=== PATIENT | female | born 1945 | race Caucasian/White ===

== ENCOUNTER 2016-08-01 19:18 | Inpatient (IN) | payer OTHER ==
[~2016-08-01] VITALS: Ht 160 cm; Wt 56.1 kg
[~2016-08-01 19:18] MED LIST: BIOTCAP2 PO; CLTP PO; EVS60 PO; LOSA1TAB PO; RANI150T3 PO
[2016-08-01] MEDS ORDERED: ONDANSETRON INJ 2 MG/ML 2 ML VIAL IV STA (19:30)
[2016-08-01] MEDS ORDERED: SODIUM CHLORIDE 0.9% 1000ML 1,000 ML IV STA ×2 (19:30→22:05)
[2016-08-01 19:47] LABS: HEMATOCRIT 45.7 % (37-47); MEAN CELL VOLUME 87.4 fL (80-100); MEAN CORPUSCULAR HEMOGLOBIN 27.3 pg (25-34); MEAN CORPUSCULAR HGB CONC 31.3 g/dl (32-36); MEAN PLATELET VOLUME 8.9 fL (7.4-10.4); PLATELET COUNT 333 K/uL (130-400); RED BLOOD COUNT 5.23 M/uL (4.2-5.4); WHITE BLOOD COUNT 21.31 K/uL (4.8-10.8)
[2016-08-01 19:55] LABS: PARTIAL THROMBOPLASTIN RATIO 0.9; PROTHROMBIN TIME (PATIENT) 10.8 SECONDS (9.0-12.0)
--- NOTE | 2016-08-01 19:57 | DIAGNOSTIC IMAGING REPORT ---
CHEST ONE VIEW PORTABLE CLINICAL HISTORY: ABDOMINAL PAIN/GI pain. Nausea. COMPARISON STUDY: 07/08/2014 FINDINGS: The bones soft tissues and hemidiaphragms are normal. The cardiomediastinal silhouette is normal. The lungs are clear. The pulmonary vasculature is normal. IMPRESSION: Negative chest. Electronically signed by: Jono Hendricks M.D. 08/01/2016 7:56 PM Dictated Date/Time: 08/01/2016 7:56 PM
[2016-08-01 20:03] LABS: CALCIUM 9.5 mg/dl (8.5-10.1); CREATININE 0.89 mg/dl (0.60-1.20); POTASSIUM 3.4 mmol/L (3.5-5.1)
[2016-08-01] MEDS ORDERED: CALCCAP17 PO (20:07)
[2016-08-01] MEDS ORDERED: LSN20 PO (20:07)
[2016-08-01] MEDS ORDERED: OPTIRAY 320 IV PRN (20:15)
[2016-08-01 20:17] LABS: MANUAL MICROSCOPIC REQUIRED? NO; REVIEW REQ? YES; URINE APPEARANCE CLOUDY (CLEAR); URINE BILIRUBIN NEG (NEG); URINE COLOR DK YELLOW; URINE EPITHELIAL CELL AUTO >30 /lpf (0-5); URINE NITRITE NEG (NEG); URINE SPECIFIC GRAVITY 1.021 (1.000-1.030); UROBILINOGEN NEG (NEG); ZZUR CULT IF INDIC CLEAN CATCH NO
[2016-08-01 20:19] LABS: BASO % 0.1 %; BASO ABS # 0.02 K/uL (0-0.2); COMPLETE YES; IG% 0.3 %; LYMPH % 4.6 %; LYMPH ABS # 0.99 K/uL (1.2-3.4); MONO % 8.3 %; NEUT % 86.7 %
[2016-08-01] MEDS ORDERED: HYDROmorphone INJ 2 MG/ML SYR/VIAL IV STA (20:30)
--- NOTE | 2016-08-01 20:38 | DIAGNOSTIC IMAGING REPORT ---
ABDOMEN AND PELVIS CT WITH IV CONTRAST CT DOSE: 260.63 mGy.cm HISTORY: Pain abd pain, bloody diarrhea ? Isch colitis TECHNIQUE: Multiaxial CT images of the abdomen and pelvis were performed following the use of intravenous contrast. COMPARISON STUDY: 05/06/2010. FINDINGS: minimal dependent bibasilar atelectatic change. Calcified splenic granuloma unaltered. Mild fatty infiltration of liver and prior cholecystectomy. Prior partial gastrectomy. An anastomotic line is patent. Periumbilical and/or incisional hernia containing multiple loops of bowel. This is a nonobstructive finding. Bowel pattern overall is nonobstructive. Mild wall thickening of the sigmoid and descending colonic region. Appearance suggests a nonspecific colitis. Pelvic sidewall/ aortic nodularity unaltered. No evidence for free air or pneumatosis. Postoperative changes to the root of the mesentery. Uterus is anteflexed. IMPRESSION: 1. Operative findings consistent with prior partial gastrectomy 2. Interval development of a periumbilical/ventral hernia containing several loops of bowel. This is a nonobstructive finding. 3. Mild wall thickening and pericolonic infiltrative change of the sigmoid and mid to distal descending colon consistent with a nonspecific colitis. 3. No evidence for abscess collection or obstruction. . Electronically signed by: Jono Hendricks M.D. 08/01/2016 8:36 PM Dictated Date/Time: 08/01/2016 8:31 PM
[2016-08-01] MEDS ORDERED: MoRPHine SULFATE 4 MG/ML 1 ML CARP\\VIAL IV STA (21:49)
[2016-08-01] MEDS ORDERED: CIPROFLOXACIN 400MG / 200ML D5W IV STA (21:56)
--- NOTE | 2016-08-01 22:04 | EMERGENCY ROOM VISIT NOTE ---
History Report prepared by Annie: Roland Barry Under the Supervision of: Dr. Wilder Allen D.O. First contact with patient: 19:24 Chief Complaint: NAUSEA Stated Complaint: NAUSEA,VOMITING,PASSING BLOOD FROM RECTUM Nursing Triage Summary: pt reports that this afternoon started with NVD " I think its this gastroenteritis" , " but what is really worrying me is the rectal bleeding that I noticed after having diarrhea" History of Present Illness The patient is a 71 year old female who presents to the Emergency Room with complaints of intermittent diffuse abdominal pain that began this afternoon. She rates her pain a 7/10 in severity. At this time, she began to have nausea with episodes of emesis and diarrhea. During these episodes the patient was having chills and diaphoresis. She has had 3 episodes of each, with her more recent diarrhea having significant amounts of blood in it. She denies any fevers at this time. She states her symptoms do not feel like food poisoning. She is not on any blood thinners. She has a history of ischemic colitis in the past. This occurred 5 years ago. She was recently told that she has an overactive lymph node in her abdomen. Source of History: patient Onset: this afternoon Position: abdomen Symptom Intensity: 7/10 Quality: ache Timing: intermittent Associated Symptoms: + chills, + diaphoresis, + diarrhea, + hematochezia, + nausea, + vomiting, No fevers Review of Systems See HPI for pertinent positives & negatives. A total of 10 systems reviewed and were otherwise negative. Past Medical & Surgical Medical Problems: (1) Hypertension (2) Ischemic colitis (3) right upper lobectomy Surgical Problems: (1) History of cholecystectomy Family History Cancer Diabetes mellitus Gallbladder disease Heart disease Hypertension Kidney disease Lung disease Seizures Social History Smoking Status: Former Smoker Alcohol Use: occasionally Marital Status: Housing Status: lives with significant other Occupation Status: other Current/Historical Medications Scheduled Biotin (Biotin 5000), 5 MG DAILY Calcium Carbonate-Vitamin D (Calcium/Vitamin D), 1 CAP PO QAM Lisinopril (Lisinopril), 20 MG PO DAILY Allergies Coded Allergies: JEB Inhibitors (Verified Adverse Reaction, Unknown, cough, 08/01/16) Physical Exam Vital Signs Date Time Temp Pulse Resp B/P Pulse Ox O2 Delivery O2 Flow Rate FiO2 08/01/16 20:55 92 18 153/102 99 Room Air 08/01/16 19:20 36.5 94 18 158/97 94 Room Air Physical Exam CONSTITUTIONAL/VITAL SIGNS: Reviewed / noted above. GENERAL: Non-toxic in appearance. INTEGUMENTARY: Warm, dry, and [place]. HEAD: Normocephalic. EYES: without scleral icterus or trauma. ENT/OROPHARYNX: clear and moist. LYMPHADENOPATHY/NECK: Is supple without lymphadenopathy or meningismus. RESPIRATORY: Lungs clear and equal. CARDIOVASCULAR: Regular rate and rhythm. GI/ABDOMEN: Soft and mild tenderness diffusely. No organomegaly or pulsatile mass. No rebound or guarding. Normal bowel sounds. RECTAL: Minimal gross blood. No stool. Otherwise, normal. EXTREMITIES: Warm and well perfused. BACK: No CVA tenderness. NEUROLOGICAL: Intact without focal deficits. PSYCHIATRIC: normal affect. MUSCULOSKELETAL: Normally developed with good muscle tone. Medical Decision & Procedures ER Provider Diagnostic Interpretation: Radiology results as stated below per my review and radiologist interpretation: CHEST ONE VIEW PORTABLE CLINICAL HISTORY: ABDOMINAL PAIN/GI pain. Nausea. COMPARISON STUDY: 07/08/2014 FINDINGS: The bones soft tissues and hemidiaphragms are normal. The cardiomediastinal silhouette is normal. The lungs are clear. The pulmonary vasculature is normal. IMPRESSION: Negative chest. Electronically signed by: Jono Hendricks M.D. 08/01/2016 7:56 PM Dictated Date/Time: 08/01/2016 7:56 PM ABDOMEN AND PELVIS CT WITH IV CONTRAST CT DOSE: 260.63 mGy.cm HISTORY: Pain abd pain, bloody diarrhea ? Isch colitis TECHNIQUE: Multiaxial CT images of the abdomen and pelvis were performed following the use of intravenous contrast. COMPARISON STUDY: 05/06/2010. FINDINGS: minimal dependent bibasilar atelectatic change. Calcified splenic granuloma unaltered. Mild fatty infiltration of liver and prior cholecystectomy. Prior partial gastrectomy. An anastomotic line is patent. Periumbilical and/or incisional hernia containing multiple loops of bowel. This is a nonobstructive finding. Bowel pattern overall is nonobstructive. Mild wall thickening of the sigmoid and descending colonic region. Appearance suggests a nonspecific colitis. Pelvic sidewall/ aortic nodularity unaltered. No evidence for free air or pneumatosis. Postoperative changes to the root of the mesentery. Uterus is anteflexed. IMPRESSION: 1. Operative findings consistent with prior partial gastrectomy 2. Interval development of a periumbilical/ventral hernia containing several loops of bowel. This is a nonobstructive finding. 3. Mild wall thickening and pericolonic infiltrative change of the sigmoid and mid to distal descending colon consistent with a nonspecific colitis. 3. No evidence for abscess collection or obstruction. . Electronically signed by: Jono Hendricks M.D. 08/01/2016 8:36 PM Dictated Date/Time: 08/01/2016 8:31 PM Laboratory Results 08/01/16 19:36 Red Blood Count 5.23, Mean Corpuscular Volume 87.4, Mean Corpuscular Hemoglobin 27.3, Mean Corpuscular Hemoglobin Concent 31.3, Mean Platelet Volume 8.9, Neutrophils (%) (Auto) 86.7, Lymphocytes (%) (Auto) 4.6, Monocytes (%) (Auto) 8.3, Eosinophils (%) (Auto) 0.0, Basophils (%) (Auto) 0.1, Neutrophils # (Auto) 18.46, Lymphocytes # (Auto) 0.99, Monocytes # (Auto) 1.77, Eosinophils # (Auto) 0.00, Basophils # (Auto) 0.02 08/01/16 19:36 Test 08/01/16 19:36 08/01/16 19:48 08/01/16 19:50 White Blood Count 21.31 K/uL (4.8-10.8) Red Blood Count 5.23 M/uL (4.2-5.4) Hemoglobin 14.3 g/dL (12.0-16.0) Hematocrit 45.7 % (37-47) Mean Corpuscular Volume 87.4 fL (80-100) Mean Corpuscular Hemoglobin 27.3 pg (25-34) Mean Corpuscular Hemoglobin Concent 31.3 g/dl (32-36) Platelet Count 333 K/uL (130-400) Mean Platelet Volume 8.9 fL (7.4-10.4) Neutrophils (%) (Auto) 86.7 % Lymphocytes (%) (Auto) 4.6 % Monocytes (%) (Auto) 8.3 % Eosinophils (%) (Auto) 0.0 % Basophils (%) (Auto) 0.1 % Neutrophils # (Auto) 18.46 K/uL (1.4-6.5) Lymphocytes # (Auto) 0.99 K/uL (1.2-3.4) Monocytes # (Auto) 1.77 K/uL (0.11-0.59) Eosinophils # (Auto) 0.00 K/uL (0-0.5) Basophils # (Auto) 0.02 K/uL (0-0.2) RDW Standard Deviation 41.4 fL (36.4-46.3) RDW Coefficient of Variation 12.9 % (11.5-14.5) Immature Granulocyte % (Auto) 0.3 % Immature Granulocyte # (Auto) 0.07 K/uL (0.00-0.02) Prothrombin Time 10.8 SECONDS (9.0-12.0) Prothromb Time International Ratio 1.0 (0.9-1.1) Activated Partial Thromboplast Time 22.8 SECONDS (21.0-31.0) Partial Thromboplastin Ratio 0.9 Anion Gap 11.0 mmol/L (3-11) Est Creatinine Clear Calc Drug Dose 47.2 ml/min Estimated GFR () 75.0 Estimated GFR (Non- 64.7 BUN/Creatinine Ratio 20.0 (10-20) Calcium Level 9.5 mg/dl (8.5-10.1) Total Bilirubin 0.7 mg/dl (0.2-1) Direct Bilirubin 0.1 mg/dl (0-0.2) Aspartate Amino Transf (AST/SGOT) 21 U/L (15-37) Alanine Aminotransferase (ALT/SGPT) 26 U/L (12-78) Alkaline Phosphatase 115 U/L (45-117) Total Protein 7.9 gm/dl (6.4-8.2) Albumin 4.2 gm/dl (3.4-5.0) Lipase 106 U/L (73-393) Bedside Lactic Acid Venous 3.42 mmol/L (0.90-1.70) Urine Color DK YELLOW Urine Appearance CLOUDY (CLEAR) Urine pH 5.0 (4.5-7.5) Urine Specific [place] 1.021 (1.000-1.030) Urine Protein NEG (NEG) Urine Glucose (UA) NEG (NEG) Urine Ketones NEG (NEG) Urine Occult Blood NEG (NEG) Urine Nitrite NEG (NEG) Urine Bilirubin NEG (NEG) Urine Urobilinogen NEG (NEG) Urine Leukocyte Esterase TRACE (NEG) Urine WBC (Auto) 1-5 /hpf (0-5) Urine RBC (Auto) 5-10 /hpf (0-4) Urine Hyaline Casts (Auto) 5-10 /lpf (0-5) Urine Epithelial Cells (Auto) >30 /lpf (0-5) Urine Bacteria (Auto) NEG (NEG) Urine Renal Epithelial Cells 0-5 /lpf (0-5) Date/Time Source Procedure Growth Status 08/01/16 19:57 Stool C.difficile Toxin B Gene (PCR) - Final No C. difficile toxin B gene detected Complete Laboratory results as stated above per my review. Medications Administered Medications (Trade) Dose Ordered Sig/Adan Route Start Time Stop Time Status Last Admin Dose Admin Sodium Chloride (Nss 1000ml) 1,000 ml @ 500 mls/hr Q2H STAT IV 08/01/16 19:30 08/01/16 21:29 DC 08/01/16 19:30 500 MLS/HR Ondansetron HCl (Zofran Inj) 4 mg NOW STAT IV 08/01/16 19:30 08/01/16 19:31 DC 08/01/16 19:30 4 MG Morphine Sulfate (MoRPHine SULFATE INJ) 4 mg NOW STAT IV 08/01/16 21:49 08/01/16 21:50 DC 08/01/16 21:59 4 MG ED Course 1923: Previous medical records were reviewed. The patient was evaluated in room A10. A complete history and physical examination was performed. 1930: Ordered Zofran Inj 4 mg IV, Sodium Chloride 1000 ml @ 500 mls/hr IV 2029: Ordered Dilaudid Inj 2 mg IV 2050: On reevaluation, the patient is resting. I discussed the results and findings with her. She verbalized agreement of the treatment plan. I spoke with Dr. Ekaterina Guerin [facility], who took the call for Dr. Schaffer of the [facility] Hospitalist Service. The patient will be evaluated for further management and care. Medical Decision Differential diagnosis: Etiologies such as gastroenteritis, food borne illness, infections, appendicitis , diverticulitis, inflammatory bowel disease, obstruction, GI bleed, biliary pathology, as well as others were entertained. This is a 71-year-old female who presents to the ED with a chief complaint of nausea, vomiting and diarrhea that started around 3 PM today. The patient had about 3 episodes of vomiting and 4-5 episodes of diarrhea. She states that the last couple of episodes of nonbloody. She's been passing small amount of blood with her diarrhea. The last couple of times it is just been a small amount of blood without stool. The patient reports abdominal pain that is waxing and waning. Her vital signs are stable. Her physical exam did not reveal any significant abdominal tenderness. She was mildly tender diffusely. Lactate level was 3.4. White blood cell count was 21.3. Complete metabolic panels normal. Lipase is negative. Dip was negative. Urine did not show infection. A CT scan reveals some nonspecific colitis-type changes in the sigmoid and distal colon. The patient was treated with IV morphine and IV fluids. She had a very small amount of blood in her stool here today. Rectal exam revealed a minimal amount of gross blood without stool. I spoke with the hospitalist service, who will see the patient for further inpatient evaluation. Symptoms could be consistent with an early or mild ischemic colitis or an infectious colitis. Consults Time Called: 2047 Consulting Physician: Dr. Ekaterina ROBLEDO, taking the call for Dr. Karime ROBLEDO Returned Call: 2050 He will be evaluating the patient for further management. Impression Primary Impression: Colitis Additional Impression: GI bleed Scribe Attestation The scribe's documentation has been prepared under my direction and personally reviewed by me in its entirety. I confirm that the note above accurately reflects all work, treatment, procedures, and medical decision making performed by me. Departure Information Dispostion Being Evaluated By Hospitalist Referrals Ramses Goyal D.O. (PCP) Patient Instructions My [facility] Problem Qualifiers
[2016-08-01] MEDS ORDERED: ONDANSETRON INJ 2 MG/ML 2 ML VIAL ONE (22:22)
--- NOTE | 2016-08-01 22:41 | History and Physical ---
History & Physical Date & Time of Service: August 01, 2016 at 22:07 Chief Complaint: Nausea,Vomiting,Passing Blood From Rectum Primary Care Physician: Ramses Goyal D.O. History of Present Illness Mrs Tavares is a 71 year old female with past medical history of suspected ischemic colitis, presents to the ER with 1 day history of left lower quadrant abdominal pain (severity 7/10), red blood in stool, fevers, chills, nausea and vomiting. She currently feels much improved after IV fluids and pain and nausea medication. She notes having a colonoscopy in 2011 which was reportedly normal and no known previous history of diverticular disease. No family history of IBD or colon cancer. Her previous episode of ischemic colitis was following her lobectomy but she is unsure whether she had a CT scan to confirm this and was not placed on an aspirin at that time. She has been intolerant to aspirin with nose bleeds in the past. No previous GI bleeds or black stool. She has a history of lung cancer (adenocarcinoma) for which she follows up with Dr Santiago Smallwood at [facility] in [facility] s/p lobectomy. She reports her last CT chest was in March and this was stable. They are following . She also had an abdominal lymph node removed which was highlighted on PET imaging but reports this was reactive but non cancerous. Past Medical/Surgical History Medical Problems: (1) Hypertension Status: Chronic (2) Ischemic colitis Status: Resolved (3) right upper lobectomy Status: Resolved Surgical Problems: (1) History of cholecystectomy Status: Resolved Family History Cancer Diabetes mellitus Gallbladder disease Heart disease Hypertension Kidney disease Lung disease Seizures Social History Smoking Status: Former Smoker Marital Status: Housing status: lives with family ( current has active cancer on chemotherapy) Occupational Status: other Immunizations History of Influenza Vaccine: Yes History of Tetanus Vaccine?: Unknown History of Pneumococcal: No History of Hepatitis B Vaccine: Unknown Multi-Drug Resistant Organisms History of MDRO: No Allergies Coded Allergies: Atenolol (Verified Adverse Reaction, Mild, Chronic cough, 08/01/16) Bisphosphonates (Verified Adverse Reaction, Mild, GI side effects, 08/01/16) Home Medications Scheduled Biotin (Biotin 5000), 5 MG DAILY Calcium Carbonate-Vitamin D (Calcium/Vitamin D), 1 CAP PO QAM Lisinopril (Lisinopril), 20 MG PO DAILY Review of Systems Constitutional: + chills, + fever Eyes: No worsening of vision ENT: No dental problems, No hearing loss, No nasal symptoms, No problem reported, No sore throat, No tinnitus, No trouble swallowing, No unusual epistaxis Respiratory: No cough, No dyspnea at rest, No dyspnea on exertion, No hemoptysis, No problem reported, No shortness of breath, No sputum, No wheezing Cardiovascular: No PND, No chest pain, No claudication, No edema, No orthopnea , No palpitations, No problem reported Abdomen: + GI bleeding, + diarrhea, + nausea, + pain, + vomiting, No constipation Musculoskeletal: No calf pain, No joint pain, No muscle pain, No problem reported, No swelling Genitourinary - Female: No dysuria, No hematuria, No problem reported, No urinary frequency, No urinary incontinence, No urinary retention, No urinary urgency Neurologic: No memory loss, No paralysis, No problem reported, No weakness Psychiatric: No problem reported Endocrine: No excessive thirst, No excessive urination, No fatigue, No problem reported Hematologic / Lymphatic: + abnormal bleeding/bruising, No swollen lymph nodes Integumentary: No itch, No rash Physical Exam Vital Signs Date Time Temp Pulse Resp B/P Pulse Ox O2 Delivery O2 Flow Rate FiO2 08/01/16 20:55 92 18 153/102 99 Room Air 08/01/16 19:20 36.5 94 18 158/97 94 Room Air General Appearance: WD/WN, no apparent distress Head: normocephalic, atraumatic Eyes: normal inspection (pupils equal, non icteric), EOMI ENT: normal ENT inspection, hearing grossly normal Neck: supple, no JVD Respiratory/Chest: chest non-tender, lungs clear, normal breath sounds, no respiratory distress, no accessory muscle use Cardiovascular: regular rate, rhythm, no edema, no murmur, normal peripheral pulses Abdomen/GI: soft, + tenderness (LLQ, no rebound or guarding) Back: no CVA tenderness Extremities/Musculoskelatal: normal inspection, no calf tenderness, normal capillary refill, no pedal edema, normal range of motion Neurologic/Psych: personal lines appraiser II-XII nml as tested (grossly), no motor/sensory deficits (grossly), alert, normal mood/affect, oriented x 3 Skin: normal color, warm/dry, no rash Diagnostics Laboratory Results Results Past 24 Hours Test 08/01/16 19:36 08/01/16 19:48 08/01/16 19:50 Range/Units White Blood Count 21.31 4.8-10.8 K/uL Red Blood Count 5.23 4.2-5.4 M/uL Hemoglobin 14.3 12.0-16.0 g/dL Hematocrit 45.7 37-47 % Mean Corpuscular Volume 87.4 80-100 fL Mean Corpuscular Hemoglobin 27.3 25-34 pg Mean Corpuscular Hemoglobin Concent 31.3 32-36 g/dl Platelet Count 333 130-400 K/uL Mean Platelet Volume 8.9 7.4-10.4 fL Neutrophils (%) (Auto) 86.7 % Lymphocytes (%) (Auto) 4.6 % Monocytes (%) (Auto) 8.3 % Eosinophils (%) (Auto) 0.0 % Basophils (%) (Auto) 0.1 % Neutrophils # (Auto) 18.46 1.4-6.5 K/uL Lymphocytes # (Auto) 0.99 1.2-3.4 K/uL Monocytes # (Auto) 1.77 0.11-0.59 K/uL Eosinophils # (Auto) 0.00 0-0.5 K/uL Basophils # (Auto) 0.02 0-0.2 K/uL RDW Standard Deviation 41.4 36.4-46.3 fL RDW Coefficient of Variation 12.9 11.5-14.5 % Immature Granulocyte % (Auto) 0.3 % Immature Granulocyte # (Auto) 0.07 0.00-0.02 K/uL Prothrombin Time 10.8 9.0-12.0 SECONDS Prothromb Time International Ratio 1.0 0.9-1.1 Activated Partial Thromboplast Time 22.8 21.0-31.0 SECONDS Partial Thromboplastin Ratio 0.9 Sodium Level 138 136-145 mmol/L Potassium Level 3.4 3.5-5.1 mmol/L Chloride Level 102 98-107 mmol/L Carbon Dioxide Level 25 21-32 mmol/L Anion Gap 11.0 3-11 mmol/L Blood Urea Nitrogen 18 7-18 mg/dl Creatinine 0.89 0.60-1.20 mg/dl Est Creatinine Clear Calc Drug Dose 47.2 ml/min Estimated GFR () 75.0 Estimated GFR (Non- 64.7 BUN/Creatinine Ratio 20.0 10-20 Random Glucose 167 70-99 mg/dl Calcium Level 9.5 8.5-10.1 mg/dl Total Bilirubin 0.7 0.2-1 mg/dl Direct Bilirubin 0.1 0-0.2 mg/dl Aspartate Amino Transf (AST/SGOT) 21 15-37 U/L Alanine Aminotransferase (ALT/SGPT) 26 12-78 U/L Alkaline Phosphatase 115 45-117 U/L Total Protein 7.9 6.4-8.2 gm/dl Albumin 4.2 3.4-5.0 gm/dl Lipase 106 73-393 U/L Bedside Lactic Acid Venous 3.42 0.90-1.70 mmol/L Urine Color DK YELLOW Urine Appearance CLOUDY CLEAR Urine pH 5.0 4.5-7.5 Urine Specific [place] 1.021 1.000-1.030 Urine Protein NEG NEG Urine Glucose (UA) NEG NEG Urine Ketones NEG NEG Urine Occult Blood NEG NEG Urine Nitrite NEG NEG Urine Bilirubin NEG NEG Urine Urobilinogen NEG NEG Urine Leukocyte Esterase TRACE NEG Urine WBC (Auto) 1-5 0-5 /hpf Urine RBC (Auto) 5-10 0-4 /hpf Urine Hyaline Casts (Auto) 5-10 0-5 /lpf Urine Epithelial Cells (Auto) >30 0-5 /lpf Urine Bacteria (Auto) NEG NEG Urine Renal Epithelial Cells 0-5 0-5 /lpf Microbiology Results 08/01/16 Blood Culture, Christopher Batch Pending 08/01/16 Blood Culture, Christopher Batch Pending 08/01/16 C.difficile Toxin B Gene (PCR) - Final, Complete No C. difficile toxin B gene detected Diagnostic Radiology ABDOMEN AND PELVIS CT WITH IV CONTRAST CT DOSE: 260.63 mGy.cm HISTORY: Pain abd pain, bloody diarrhea ? Isch colitis TECHNIQUE: Multiaxial CT images of the abdomen and pelvis were performed following the use of intravenous contrast. COMPARISON STUDY: 05/06/2010. FINDINGS: minimal dependent bibasilar atelectatic change. Calcified splenic granuloma unaltered. Mild fatty infiltration of liver and prior cholecystectomy. Prior partial gastrectomy. An anastomotic line is patent. Periumbilical and/or incisional hernia containing multiple loops of bowel. This is a nonobstructive finding. Bowel pattern overall is nonobstructive. Mild wall thickening of the sigmoid and descending colonic region. Appearance suggests a nonspecific colitis. Pelvic sidewall/ aortic nodularity unaltered. No evidence for free air or pneumatosis. Postoperative changes to the root of the mesentery. Uterus is anteflexed. IMPRESSION: 1. Operative findings consistent with prior partial gastrectomy 2. Interval development of a periumbilical/ventral hernia containing several loops of bowel. This is a nonobstructive finding. 3. Mild wall thickening and pericolonic infiltrative change of the sigmoid and mid to distal descending colon consistent with a nonspecific colitis. 3. No evidence for abscess collection or obstruction. . Electronically signed by: Jono Hendricks M.D. 08/01/2016 8:36 PM Dictated Date/Time: 08/01/2016 8:31 PM CXR normal Impression Assessment and Plan 71 year old female with possible past history of ischemic colitis but no imaging to confirm this present with non specific colitis on CT of sigmoid with elevated WBC consistent with diverticulitis. Lactic acid is raised. She will be admitted as this may still be ischemic in nature and we will get an US of her mesenteric arteries. Ischemic colitis vs. diverticulitis - most likely diverticulitis however with past history of ischemia this cannot be ruled out. CT with IV contrast does not show any ischemic regions - US mesenteric arteries - Blood cultures - cipro + metronidazole - NPO except meds and ice chips - Zofran + Phenergan for nausea, morphine + acetaminophen for pain - If continues to vomit will need NG tube - lactic acid now and in the morning - IVF Hypertension - Continue lisinopril, monitor Cr Code - Full VTE Prophylaxis - SCDs, will hold off chemical given current GI bleeding, could be considered in the morning depending on repeat CBC Disposition - admit to med/surg Level of Care Med/Surg Resuscitation Status FULL RESUSCITATION VTE Prophylaxis VTE Risk Assessment Done? Y/N: Yes Risk Level: Moderate Given or contraindicated: Contraindicated (ongoing GI bleed) Resident Tracking Resident Involvement: Resident Care Provided Care Provided: Adult [facility] Medicine Assessment and Plan Attending Addendum: I have physically seen and examined this patient, have directed their medical care, have supervised the medical residents activities, and agree with the H&P as noted above, with the following changes: NONE
[2016-08-01] MEDS ORDERED: MoRPHine SULFATE 2 MG/ML CARP IV PRN (22:45)
[2016-08-01] MEDS ORDERED: PROMETHAZINE HCL INJ 12.5 MG in SODIUM CHLORIDE 0.9% 50ML 50 ML IV PRN (22:45)
[2016-08-01] MEDS: ONDANSETRON INJ 2 MG/ML 2 ML VIAL IV PRN (23:49)
[2016-08-01 23:57] VITALS: BP 103/68; PULSE 96; TEMP 36.6; O2SAT 95
[2016-08-01] MEDS: METRONIDAZOLE / NSS 500 MG in PREMIXED NSS 100 ML IV SCH (23:59)
[2016-08-02] VITALS: BP 132/81; PULSE 86; TEMP 36.6; O2SAT 94
[2016-08-02 00:45] VITALS: BP 132/81; PULSE 86; TEMP 36.6; O2SAT 94; Ht 160 cm; Wt 56.1 kg
[2016-08-02] MEDS: POTASSIUM CHLORIDE INJ 40 MEQ in SODIUM CHLORIDE 0.9% 1000ML 1,000 ML IV SCH ×3 (03:36→21:23)
--- NOTE | 2016-08-02 06:47 | DIAGNOSTIC IMAGING REPORT ---
DUPLEX MESENTERIC CLINICAL HISTORY: Possible ischemic colitis. COMPARISON STUDY: CT of the abdomen and pelvis August 01, 2016. FINDINGS: The peak systolic velocity within the abdominal aorta was 135 cm/s. The peak systolic velocity within the superior mesenteric artery with within the mid SMA, measuring 271 cm/s. The peak systolic velocity within the celiac axis was 86 cm/s. IMPRESSION: No definite sonographic evidence of a hemodynamically significant stenosis within the major mesenteric vessels. Borderline elevated velocity within the mid SMA. Electronically signed by: Nickolas Laurent M.D. 08/02/2016 6:46 AM Dictated Date/Time: 08/02/2016 6:42 AM
[2016-08-02] MEDS: ONDANSETRON INJ 2 MG/ML 2 ML VIAL IV PRN (07:16)
[2016-08-02 07:23] VITALS: BP 108/72; PULSE 97; TEMP 36.7; O2SAT 96
[2016-08-02 07:53] LABS: BASO % 0.1 %; BASO ABS # 0.01 K/uL (0-0.2); COMPLETE YES; EOS % 0.1 %; HEMATOCRIT 35.5 % (37-47); IG% 0.3 %; LYMPH % 8.6 %; LYMPH ABS # 1.27 K/uL (1.2-3.4); MEAN CELL VOLUME 87.2 fL (80-100); MEAN CORPUSCULAR HEMOGLOBIN 28.3 pg (25-34); MEAN CORPUSCULAR HGB CONC 32.4 g/dl (32-36); MEAN PLATELET VOLUME 8.6 fL (7.4-10.4); MONO % 7.7 %; NEUT % 83.2 %; PLATELET COUNT 254 K/uL (130-400); RED BLOOD COUNT 4.07 M/uL (4.2-5.4); WHITE BLOOD COUNT 14.77 K/uL (4.8-10.8)
[2016-08-02 08:49] LABS: BUN/CREATININE RATIO 18.1 (10-20); CREATININE 0.72 mg/dl (0.60-1.20); POTASSIUM 4.1 mmol/L (3.5-5.1)
[2016-08-02] MEDS: LISINOPRIL 20 MG TAB PO SCH (08:57)
[2016-08-02] MEDS: CIPROFLOXACIN / D5W 400 MG in PREMIXED IN D5W 200 ML IV SCH ×3 (08:57→21:23)
[2016-08-02] MEDS: METRONIDAZOLE / NSS 500 MG in PREMIXED NSS 100 ML IV SCH ×3 (08:57→23:51)
[2016-08-02 09:01] LABS: CALCIUM 8.1 mg/dl (8.5-10.1)
[2016-08-02] MEDS: ACETAMINOPHEN IV 650 MG in EMPTY BAG 0 ML IV PRN ×2 (11:23→17:13)
[2016-08-02 15:26] VITALS: BP 99/65; PULSE 76; TEMP 36.4; O2SAT 96
[2016-08-02 15:31] VITALS: BP 116/72; PULSE 87; TEMP 36.8; O2SAT 96
[2016-08-02 16:10] VITALS: O2SAT 96
--- NOTE | 2016-08-02 19:30 | Hospitalist Progress Note ---
Hospitalist Progress Note Date of Service August 02, 2016. Medications Medications (Trade) Dose Ordered Sig/Adan Route Start Time Stop Time Status Last Admin Dose Admin Sodium Chloride (Nss 1000ml) 1,000 ml @ 500 mls/hr Q2H STAT IV 08/01/16 19:30 08/01/16 21:29 DC 08/01/16 19:30 500 MLS/HR Ondansetron HCl (Zofran Inj) 4 mg NOW STAT IV 08/01/16 19:30 08/01/16 19:31 DC 08/01/16 19:30 4 MG Morphine Sulfate (MoRPHine SULFATE INJ) 4 mg NOW STAT IV 08/01/16 21:49 08/01/16 21:50 DC 08/01/16 21:59 2 MG Ciprofloxacin/ Dextrose 400 mg 400 mg NOW STAT IV 08/01/16 21:56 08/01/16 22:20 DC 08/01/16 22:26 400 MG Metronidazole 500 mg/Prmx 100 ml @ 100 mls/hr Q8H IV 08/02/16 00:00 08/12/16 00:00 08/02/16 08:57 100 MLS/HR Sodium Chloride 1,000 ml @ 250 mls/hr Q4H STAT IV 08/01/16 22:05 08/02/16 02:04 DC 08/01/16 22:26 250 MLS/HR Potassium Chloride/Sodium Chloride (KCl Inj/Nss 1000ml) 1,020 ml @ 125 mls/hr Q8H10M IV 08/02/16 02:30 09/01/16 02:29 08/02/16 03:36 125 MLS/HR Ondansetron HCl (Zofran Inj) 4 mg STK-MED ONCE .ROUTE 08/01/16 22:22 08/01/16 22:23 DC 08/01/16 22:26 4 MG Ondansetron HCl 4 mg 4 mg Q4H PRN IV 08/01/16 22:30 08/31/16 22:29 08/02/16 07:16 4 MG Promethazine HCl/ Sodium Chloride (Phenergan Inj/ Nss 50ml) 50.5 ml @ 204 mls/hr Q6H PRN IV 08/01/16 22:45 08/31/16 22:44 08/02/16 01:06 204 MLS/HR Lisinopril (Zestril Tab) 20 mg DAILY PO 08/02/16 08:00 09/01/16 08:59 08/02/16 08:57 20 MG Objective Vital Signs Date Time Temp Pulse Resp B/P Pulse Ox O2 Delivery O2 Flow Rate FiO2 08/02/16 07:23 36.7 97 18 108/72 96 Room Air 08/02/16 00:45 36.6 86 20 132/81 94 Room Air 08/02/16 00:00 36.6 86 20 132/81 94 Room Air 08/01/16 22:34 87 18 128/85 96 Room Air 08/01/16 20:55 92 18 153/102 99 Room Air 08/01/16 19:20 36.5 94 18 158/97 94 Room Air Physical Exam General Appearance: WD/WN Eyes: normal inspection ENT: normal ENT inspection Neck: supple, no JVD Respiratory/Chest: chest non-tender, lungs clear Cardiovascular: regular rate, rhythm, no edema, no gallop Abdomen: normal bowel sounds, non tender, soft Extremities: normal range of motion, non-tender Neurologic/Psychiatric: offc spec II-XII nml as tested, no motor/sensory deficits, alert, normal mood/affect, oriented x 3 Laboratory Results Last 24 Hours Test 08/01/16 19:36 08/01/16 19:48 08/01/16 19:50 08/01/16 22:29 White Blood Count 21.31 K/uL Red Blood Count 5.23 M/uL Hemoglobin 14.3 g/dL Hematocrit 45.7 % Mean Corpuscular Volume 87.4 fL Mean Corpuscular Hemoglobin 27.3 pg Mean Corpuscular Hemoglobin Concent 31.3 g/dl Platelet Count 333 K/uL Mean Platelet Volume 8.9 fL Neutrophils (%) (Auto) 86.7 % Lymphocytes (%) (Auto) 4.6 % Monocytes (%) (Auto) 8.3 % Eosinophils (%) (Auto) 0.0 % Basophils (%) (Auto) 0.1 % Neutrophils # (Auto) 18.46 K/uL Lymphocytes # (Auto) 0.99 K/uL Monocytes # (Auto) 1.77 K/uL Eosinophils # (Auto) 0.00 K/uL Basophils # (Auto) 0.02 K/uL RDW Standard Deviation 41.4 fL RDW Coefficient of Variation 12.9 % Immature Granulocyte % (Auto) 0.3 % Immature Granulocyte # (Auto) 0.07 K/uL Prothrombin Time 10.8 SECONDS Prothromb Time International Ratio 1.0 Activated Partial Thromboplast Time 22.8 SECONDS Partial Thromboplastin Ratio 0.9 Sodium Level 138 mmol/L Potassium Level 3.4 mmol/L Chloride Level 102 mmol/L Carbon Dioxide Level 25 mmol/L Anion Gap 11.0 mmol/L Blood Urea Nitrogen 18 mg/dl Creatinine 0.89 mg/dl Est Creatinine Clear Calc Drug Dose 47.2 ml/min Estimated GFR () 75.0 Estimated GFR (Non- 64.7 BUN/Creatinine Ratio 20.0 Random Glucose 167 mg/dl Calcium Level 9.5 mg/dl Total Bilirubin 0.7 mg/dl Direct Bilirubin 0.1 mg/dl Aspartate Amino Transf (AST/SGOT) 21 U/L Alanine Aminotransferase (ALT/SGPT) 26 U/L Alkaline Phosphatase 115 U/L Total Protein 7.9 gm/dl Albumin 4.2 gm/dl Lipase 106 U/L Bedside Lactic Acid Venous 3.42 mmol/L Urine Color DK YELLOW Urine Appearance CLOUDY Urine pH 5.0 Urine Specific [place] 1.021 Urine Protein NEG Urine Glucose (UA) NEG Urine Ketones NEG Urine Occult Blood NEG Urine Nitrite NEG Urine Bilirubin NEG Urine Urobilinogen NEG Urine Leukocyte Esterase TRACE Urine WBC (Auto) 1-5 /hpf Urine RBC (Auto) 5-10 /hpf Urine Hyaline Casts (Auto) 5-10 /lpf Urine Epithelial Cells (Auto) >30 /lpf Urine Bacteria (Auto) NEG Urine Renal Epithelial Cells 0-5 /lpf Lactic Acid Level 3.2 mmol/L Test 08/02/16 07:42 White Blood Count 14.77 K/uL Red Blood Count 4.07 M/uL Hemoglobin 11.5 g/dL Hematocrit 35.5 % Mean Corpuscular Volume 87.2 fL Mean Corpuscular Hemoglobin 28.3 pg Mean Corpuscular Hemoglobin Concent 32.4 g/dl Platelet Count 254 K/uL Mean Platelet Volume 8.6 fL Neutrophils (%) (Auto) 83.2 % Lymphocytes (%) (Auto) 8.6 % Monocytes (%) (Auto) 7.7 % Eosinophils (%) (Auto) 0.1 % Basophils (%) (Auto) 0.1 % Neutrophils # (Auto) 12.30 K/uL Lymphocytes # (Auto) 1.27 K/uL Monocytes # (Auto) 1.13 K/uL Eosinophils # (Auto) 0.01 K/uL Basophils # (Auto) 0.01 K/uL RDW Standard Deviation 42.5 fL RDW Coefficient of Variation 13.3 % Immature Granulocyte % (Auto) 0.3 % Immature Granulocyte # (Auto) 0.05 K/uL Sodium Level 140 mmol/L Potassium Level 4.1 mmol/L Chloride Level 108 mmol/L Carbon Dioxide Level 23 mmol/L Anion Gap 9.0 mmol/L Blood Urea Nitrogen 13 mg/dl Creatinine 0.72 mg/dl Est Creatinine Clear Calc Drug Dose 58.4 ml/min Estimated GFR () 97.0 Estimated GFR (Non- 83.7 BUN/Creatinine Ratio 18.1 Random Glucose 108 mg/dl Lactic Acid Level 1.3 mmol/L Calcium Level 8.1 mg/dl Total Bilirubin 0.9 mg/dl Aspartate Amino Transf (AST/SGOT) 17 U/L Alanine Aminotransferase (ALT/SGPT) 19 U/L Alkaline Phosphatase 75 U/L Total Protein 5.7 gm/dl Albumin 2.9 gm/dl Globulin 2.8 gm/dl Albumin/Globulin Ratio 1.0 Diagnostic Results [~ rep ct add3]] DUPLEX MESENTERIC CLINICAL HISTORY: Possible ischemic colitis. COMPARISON STUDY: CT of the abdomen and pelvis August 01, 2016. FINDINGS: The peak systolic velocity within the abdominal aorta was 135 cm/s. The peak systolic velocity within the superior mesenteric artery with within the mid SMA, measuring 271 cm/s. The peak systolic velocity within the celiac axis was 86 cm/s. IMPRESSION: No definite sonographic evidence of a hemodynamically significant stenosis within the major mesenteric vessels. Borderline elevated velocity within the mid SMA. Electronically signed by: Nickolas Laurent M.D. 08/02/2016 6:46 AM Dictated Date/Time: 08/02/2016 6:42 AM Assessment and Plan 71 year old female with possible past history of ischemic colitis but no imaging to confirm this present with non specific colitis on CT of sigmoid with elevated WBC consistent with diverticulitis. Lactic acid is raised. She will be admitted as this may still be ischemic in nature and we will get an US of her mesenteric arteries. Ischemic colitis vs. diverticulitis - most likely diverticulitis however with past history of ischemia this cannot be ruled out. CT with IV contrast does not show any ischemic regions - US mesenteric arteries shows no evidence of high grade stenosis. - Blood cultures - cipro + metronidazole - NPO except meds and ice chips - Zofran + Phenergan for nausea, morphine + acetaminophen for pain - If continues to vomit will need NG tube - lactic acid improved. - GI consult - IVF Hypertension - Continue lisinopril, monitor Cr Code - Full VTE Prophylaxis - SCDs, will hold off chemical given current GI bleeding, could be considered in the morning depending on repeat CBC Disposition - admit to med/surg
[2016-08-03] VITALS: BP 93/55; PULSE 82; TEMP 36.9; O2SAT 96
[2016-08-03] MEDS: POTASSIUM CHLORIDE INJ 40 MEQ in SODIUM CHLORIDE 0.9% 1000ML 1,000 ML IV SCH ×2 (03:00→11:34)
--- NOTE | 2016-08-03 05:53 | GASTROINTESTINAL CONSULTATION ---
DATE OF CONSULTATION: 08/02/2016 ATTENDING PHYSICIAN: Dr. Schaffer. CONSULTING PHYSICIAN: Dr. Mukherjee. REASON FOR CONSULTATION: Colitis. HISTORY OF PRESENT ILLNESS: Emily Valdovinos is a 71-year-old female who presented to the Department of Emergency Medicine on August 01 with complaints of nausea, vomiting and rectal bleeding. She stated that she developed episodes of abdominal pain in the left lower quadrant, which was 7/10 in intensity as well as associated nausea, vomiting, lightheadedness, dizziness and questionable loss of consciousness. She also had diaphoresis and subsequently had multiple episodes of bright red blood per rectum. She presented to the Department of Emergency Medicine. Upon arrival, she was noted to have an H\T\H of 14.3 and 45.7 with a white blood cell count of 21.31, and platelet count of 333. Her liver panel was unremarkable. She underwent a CT scan of the abdomen and pelvis, which showed mild wall thickening and pericolonic infiltrative change in the sigmoid and mid to distal descending colon consistent with a nonspecific colitis. She subsequently was admitted, was given IV fluids, was placed on IV Cipro and Flagyl therapy and had a repeat H\T\H this morning, which showed a decrease in her H\T\H to 11.5 and 35.5. At the time that I saw the patient, she states that she was feeling much improved from her arrival to the ER. She states that her pain has improved with IV Tylenol therapy and she has had continued small bloody bowel movements. She currently rates her pain as 4/10 in intensity, nonradiating, alleviated by Tylenol, described as a chronic ache at this time. She denies any further nausea, vomiting, hematemesis or melena. She states that she has not had any jaundice, acholic stools, dark urine, pruritus, chest pain, shortness of breath, cough, dysuria, hematuria, arthralgia, myalgias, numbness or tingling in her extremities, skin rash or weight change. She has not had any further complaints. It should be noted that her last colonoscopy was performed in 2010 and at that time, she was noted to have two colon polyps as well as diverticulosis. The polyps were noted to be non-adenomatous and recommendation was for a repeat colonoscopy in 10 years' time. She has no further complaints. PAST MEDICAL HISTORY: Significant for diverticulosis, hypertension, and ischemic colitis. PAST SURGICAL HISTORY: Includes cholecystectomy and a right upper lobectomy of the lung secondary to adenocarcinoma. ALLERGIES: ATENOLOL AND BISPHOSPHONATES. MEDICATIONS AT PRESENT: Include, Cipro 400 mg IV q. 12 hours, lisinopril 20 mg p.o. daily, Flagyl 500 mg IV q. 8 hours, Tylenol 650 mg IV q. 6 hours p.r.n. pain or fever, morphine 2 mg IV q. 2 hours p.r.n. pain, Phenergan 12.5 mg IV q. 6 p.r.n. nausea or vomiting, and Zofran 4 mg IV q. 4 hours p.r.n. nausea. SOCIAL HISTORY: She is . She is a previous smoker. She does not use any alcohol or illicit drugs. FAMILY HISTORY: Negative for GI malignancy or inflammatory bowel disease. REVIEW OF SYSTEMS: Negative x12 system review other than pertinent positives listed in the HPI. PHYSICAL EXAMINATION: VITAL SIGNS: Temp 36.4, pulse 76, respirations 24, blood pressure 99/65, and pulse ox 96% on 3 liters via nasal cannula. GENERAL: She is awake and cooperative, in no acute distress. HEAD: Normocephalic and atraumatic. EYES: Pupils equally round. Extraocular muscles are intact. ENT: External evaluation of ears and nose are normal. Oropharynx is clear. NECK: Soft and supple. There is no JVD or lymphadenopathy. CHEST: Clear to auscultation in the bilateral bases. CARDIOVASCULAR SYSTEM: Regular rate and rhythm. ABDOMEN: Soft, tender in the left upper and lower quadrants, nondistended. Positive bowel sounds. There is no hepatosplenomegaly or stigmata of chronic liver disease. EXTREMITIES: No clubbing, cyanosis, or edema. SKIN: Soft, pink. Good turgor. PSYCHIATRIC: Alert and oriented x3. LABORATORY STUDIES AND RADIOGRAPHIC STUDIES: Reviewed in the HPI. IMPRESSION: This is a 71-year-old female who presented with nausea, vomiting, diaphoresis, near syncope and rectal bleeding with CT imaging consistent with a distribution of ischemic colitis. PLAN: The natural course of ischemic colitis is resolution in 90% of patients with conservative care including IV fluids, maintenance of normal blood pressure and IV antibiotics including Cipro and Flagyl therapy to prevent translocation of bacteria across the damaged GI mucosa. Surgical intervention is needed in less than 10% of patients with ischemic colitis and she currently exhibits no evidence of requiring any surgical care at this time. I would not recommend that she undergo any invasive testing at this time, though I would recommend a repeat colonoscopy in 6 weeks to ensure complete healing and to ensure no other cause of her current symptoms. She is in agreement with this plan. I will follow her clinical course and make further recommendations as needed. Once again, thanks for allowing me to participate in the care of this patient. If you have any further questions, please do not hesitate in contacting me.
--- NOTE | 2016-08-03 06:02 | Clinical Documentation Query ---
CLINICAL DOCUMENTATION QUERY 71 year old female who presents to the Emergency Room with complaints of intermittent diffuse abdominal pain. In your clinical opinion is this patient being managed for: ( ) SIRS of noninfectious origin precipitated by either Ischemic colitis with bleeding or Acute Diverticulitis with bleeding treated with IVFs, antiemetics, and IV Cipro. ( ) Sepsis due to Acute Diverticulitis or Ischemic colitis managed by with same. ( ) Other explanation of clinical findings (Please Explain) ( ) Unable to determine (Please Define) ( ) Need to Discuss ( ) Not Agree The medical record reflects the following clinical findings, treatment, and risk factors. Clinical Indicators: Leukocytosis 21.31, Lactic acidosis 3.42, mild tachycardia (94). Treatment: IVF boluses, IV Phenergan, IV Zofran, IV Cipro, IV Morphine, Risk Factors: Age, underlying GI distress. Please clarify and document your clinical opinion in the progress notes and discharge summary. Terms such as "probable", "suspected", "likely", "questionable", "possible", or "still to be ruled out" are acceptable. IF IN AGREEMENT, YOU MUST DOCUMENT ABOVE DIAGNOSTIC STATEMENT IN DAILY PROGRESS NOTES AND DISCHARGE SUMMARY. This document is not part of the patient's record. SIRS Criteria * SIRS criteria are present in many hospitalized patients, including those who never develop infection and never incur adverse outcomes. * SIRS may simply reflect an appropriate host response that is frequently adaptive. * SIRS criteria, such as pyrexia or neutrophilia should alert the CDS to a potential infectious process. * 2 of 4 SIRS criteria may clinically support both an infectious process and a systemic process, i.e. Sepsis. * Temperature >38C or <36C * Heart Rate >90/min * Respiratory Rate >20/min or PaCO2 <32 mm Hg * WBC >12,000/mm3 or <4000/mm3 or >10% immature bands Thank You, Moses Foley, RENEA [phone]
[2016-08-03 07:35] VITALS: BP 117/76; PULSE 91; TEMP 36.6; O2SAT 96
[2016-08-03 07:51] LABS: BASO % 0.1 %; BASO ABS # 0.02 K/uL (0-0.2); COMPLETE YES; EOS % 0.4 %; HEMATOCRIT 40.7 % (37-47); IG% 0.2 %; LYMPH % 7.5 %; LYMPH ABS # 1.28 K/uL (1.2-3.4); MEAN CELL VOLUME 89.6 fL (80-100); MEAN CORPUSCULAR HEMOGLOBIN 27.1 pg (25-34); MEAN CORPUSCULAR HGB CONC 30.2 g/dl (32-36); MONO % 5.9 %; NEUT % 85.9 %; PLATELET COUNT 268 K/uL (130-400); RED BLOOD COUNT 4.54 M/uL (4.2-5.4); WHITE BLOOD COUNT 17.06 K/uL (4.8-10.8)
[2016-08-03] MEDS: METRONIDAZOLE / NSS 500 MG in PREMIXED NSS 100 ML IV SCH (08:01)
[2016-08-03] MEDS: LISINOPRIL 20 MG TAB PO SCH (08:01)
[2016-08-03 08:32] LABS: ALB/GLOB RATIO 0.9 (0.9-2); CREATININE 0.68 mg/dl (0.60-1.20); POTASSIUM 4.3 mmol/L (3.5-5.1)
[2016-08-03 08:43] LABS: CALCIUM 8.1 mg/dl (8.5-10.1)
--- NOTE | 2016-08-03 09:49 | Gastroenterology Progress Note ---
Progress Note Date of Service: August 03, 2016 Subjective Pt evaluation today including: conversation w/ patient, physical exam, chart review, lab review, review of inpatient medication list Patient reports continued improvement in symptoms. She has been advanced to a regular breakfast and is tolerating well. No abdominal pain, nausea or vomiting. She reports passing a small amount of blood in her stool this morning but her H&H is normal today at 12.3 and 40.7. Continues Cipro and Flagyl. Review of Systems Constitutional: No chills, No fever Respiratory: No problem reported Cardiac: No problem reported Abdomen: + see HPI Skin: No problem reported Medications Current Inpatient Medications Medications (Trade) Dose Ordered Sig/Adan Route Start Time Stop Time Status Last Admin Dose Admin Ioversol 100 ml 100 ml UD PRN IV 08/01/16 20:15 08/05/16 20:14 Ciprofloxacin/ Dextrose 400 mg/ Prmx 200 ml @ 100 mls/hr Q12H IV 08/02/16 10:00 08/12/16 09:59 08/02/16 21:23 100 MLS/HR Metronidazole 500 mg/Prmx 100 ml @ 100 mls/hr Q8H IV 08/02/16 00:00 08/12/16 00:00 08/03/16 08:01 100 MLS/HR Potassium Chloride/Sodium Chloride (KCl Inj/Nss 1000ml) 1,020 ml @ 125 mls/hr Q8H10M IV 08/02/16 02:30 09/01/16 02:29 08/03/16 03:00 125 MLS/HR Ondansetron HCl 4 mg 4 mg Q4H PRN IV 08/01/16 22:30 08/31/16 22:29 08/02/16 07:16 4 MG Acetaminophen/ Empty Bag (Ofirmev Iv/ Empty Iv Bag 100ml) 65 ml @ 260 mls/hr Q6H PRN IV 08/01/16 22:45 08/31/16 22:44 08/02/16 17:13 260 MLS/HR Morphine Sulfate 2 mg 2 mg Q2H PRN IV 08/01/16 22:45 08/15/16 22:44 Promethazine HCl/ Sodium Chloride (Phenergan Inj/ Nss 50ml) 50.5 ml @ 204 mls/hr Q6H PRN IV 08/01/16 22:45 08/31/16 22:44 08/02/16 01:06 204 MLS/HR Lisinopril (Zestril Tab) 20 mg DAILY PO 08/02/16 08:00 09/01/16 08:59 08/03/16 08:01 20 MG Objective Vital Signs Date Time Temp Pulse Resp B/P Pulse Ox O2 Delivery O2 Flow Rate FiO2 08/03/16 07:35 36.6 91 18 117/76 96 Room Air 08/03/16 00:40 Room Air 08/03/16 00:00 36.9 82 20 93/55 96 Room Air 08/02/16 16:10 96 Room Air 08/02/16 15:31 36.8 87 20 116/72 96 Room Air 08/02/16 15:26 36.4 76 24 99/65 96 Nasal Cannula 3.0 Physical Exam General Appearance: no apparent distress Eyes: EOMI Neck: supple Respiratory/Chest: lungs clear, normal breath sounds, no respiratory distress Cardiovascular: regular rate, rhythm, no gallop, no murmur Abdomen: normal bowel sounds, non tender, soft Extremities: no pedal edema Neurologic/Psych: alert, normal mood/affect, oriented x 3 Skin: warm/dry Laboratory Results Last 24 Hours Test 08/03/16 07:06 White Blood Count 17.06 K/uL Red Blood Count 4.54 M/uL Hemoglobin 12.3 g/dL Hematocrit 40.7 % Mean Corpuscular Volume 89.6 fL Mean Corpuscular Hemoglobin 27.1 pg Mean Corpuscular Hemoglobin Concent 30.2 g/dl Platelet Count 268 K/uL Mean Platelet Volume 9.0 fL Neutrophils (%) (Auto) 85.9 % Lymphocytes (%) (Auto) 7.5 % Monocytes (%) (Auto) 5.9 % Eosinophils (%) (Auto) 0.4 % Basophils (%) (Auto) 0.1 % Neutrophils # (Auto) 14.65 K/uL Lymphocytes # (Auto) 1.28 K/uL Monocytes # (Auto) 1.01 K/uL Eosinophils # (Auto) 0.06 K/uL Basophils # (Auto) 0.02 K/uL RDW Standard Deviation 44.5 fL RDW Coefficient of Variation 13.6 % Immature Granulocyte % (Auto) 0.2 % Immature Granulocyte # (Auto) 0.04 K/uL Sodium Level 141 mmol/L Potassium Level 4.3 mmol/L Chloride Level 108 mmol/L Carbon Dioxide Level 24 mmol/L Anion Gap 9.0 mmol/L Blood Urea Nitrogen 6 mg/dl Creatinine 0.68 mg/dl Est Creatinine Clear Calc Drug Dose 61.9 ml/min Estimated GFR () 101.3 Estimated GFR (Non- 87.4 BUN/Creatinine Ratio 9.0 Random Glucose 79 mg/dl Calcium Level 8.1 mg/dl Total Bilirubin 1.0 mg/dl Aspartate Amino Transf (AST/SGOT) 17 U/L Alanine Aminotransferase (ALT/SGPT) 18 U/L Alkaline Phosphatase 75 U/L Total Protein 6.0 gm/dl Albumin 2.9 gm/dl Globulin 3.1 gm/dl Albumin/Globulin Ratio 0.9 Assessment and Plan Patient is a 71 year-old female admitted with nausea, vomiting and abdominal pain which have resolved as well as rectal bleeding in the setting of abnormal imaging and elevated lactate level consistent with ischemic colitis. 1. Patient is improving clinically and could be discharged from a GI standpoint if continues to tolerate regular diet. 2. Continue Cipro and Flagyl for a total of 10 days. 3. Supportive measures.
[2016-08-03] MEDS: CIPROFLOXACIN / D5W 400 MG in PREMIXED IN D5W 200 ML IV SCH (10:22)
[2016-08-03] MEDS ORDERED: LORAZEPAM 0.5 MG TAB PO SCH (12:00)
[2016-08-03] MEDS ORDERED: MTR500 PO (12:48)
[2016-08-03] MEDS ORDERED: CPR500 PO (12:48)
--- NOTE | 2016-08-03 12:51 | Discharge Instructions ---
Discharge Instructions Date of Service August 03, 2016. Admission Reason for Admission: Diverticulitis, Ischemic Colitis, Lactic Acidosis Discharge Discharge Diagnosis / Problem: Ischemic colitis Discharge Goals Goal(s): Improve function Activity Recommendations Activity Limitations: per Instructions/Follow-up section Lifting Limitations: gradually increase as tolerated Exercise/Sports Limitations: until after follow-up appointment May Resume Sexual Activity: after follow-up appointment Shower/Bathe: no limitations Driving or Machine Use: no limitations . Instructions / Follow-Up Instructions / Follow-Up Dr.Case EDITH in one to two weeks Current Hospital Diet Patient's current hospital diet: AHA Diet (Heart Healthy) Discharge Diet Recommended Diet: AHA Diet (Heart Healthy) Procedures Procedures Performed: DUPLEX MESENTERIC CLINICAL HISTORY: Possible ischemic colitis. COMPARISON STUDY: CT of the abdomen and pelvis August 01, 2016. FINDINGS: The peak systolic velocity within the abdominal aorta was 135 cm/s. The peak systolic velocity within the superior mesenteric artery with within the mid SMA, measuring 271 cm/s. The peak systolic velocity within the celiac axis was 86 cm/s. IMPRESSION: No definite sonographic evidence of a hemodynamically significant stenosis within the major mesenteric vessels. Borderline elevated velocity within the mid SMA. Electronically signed by: Nickolas Laurent M.D. 08/02/2016 6:46 AM ABDOMEN AND PELVIS CT WITH IV CONTRAST CT DOSE: 260.63 mGy.cm HISTORY: Pain abd pain, bloody diarrhea ? Isch colitis TECHNIQUE: Multiaxial CT images of the abdomen and pelvis were performed following the use of intravenous contrast. COMPARISON STUDY: 05/06/2010. FINDINGS: minimal dependent bibasilar atelectatic change. Calcified splenic granuloma unaltered. Mild fatty infiltration of liver and prior cholecystectomy. Prior partial gastrectomy. An anastomotic line is patent. Periumbilical and/or incisional hernia containing multiple loops of bowel. This is a nonobstructive finding. Bowel pattern overall is nonobstructive. Mild wall thickening of the sigmoid and descending colonic region. Appearance suggests a nonspecific colitis. Pelvic sidewall/ aortic nodularity unaltered. No evidence for free air or pneumatosis. Postoperative changes to the root of the mesentery. Uterus is anteflexed. IMPRESSION: 1. Operative findings consistent with prior partial gastrectomy 2. Interval development of a periumbilical/ventral hernia containing several loops of bowel. This is a nonobstructive finding. 3. Mild wall thickening and pericolonic infiltrative change of the sigmoid and mid to distal descending colon consistent with a nonspecific colitis. 3. No evidence for abscess collection or obstruction. . Electronically signed by: Jono Hendricks M.D. Pending Studies Studies pending at discharge: no Medical Emergencies . Who to Call and When: Medical Emergencies: If at any time you feel your situation is an emergency, please call 911 immediately. . Non-Emergent Contact Non-Emergency issues call your: Primary Care Provider Call Non-Emergent contact if: you have a fever, your pain is not controlled . Past History Medical & Surgical History: (1) Ischemic colitis (2) Hypertension . "Provider Documentation" section prepared by Michaela Eric. . Doctor Osteopathic Recommendations Doctor Osteopathic Recommendations: Complete ten day course of oral antibiotics VTE Core Measure Inpt VTE Proph given/why not?: SCD's, Contraindicated (ongoing GI bleed)
[2016-08-03 13:13] VITALS: BP 117/76; PULSE 91; TEMP 36.6; O2SAT 96
[2016-08-03] MEDS ORDERED: METRONIDAZOLE 500 MG TAB PO SCH (14:00)
--- NOTE | 2016-08-03 19:41 | Discharge Summary ---
Discharge Summary Date of Service August 03, 2016. Discharge Summary Admission Date: August 01, 2016 at 22:03 Discharge Date: August 03, 2016 Discharge Disposition: Home Principal Diagnosis: Ischemic colitis Immunizations: Have You Had Influenza Vaccine: Yes History of Tetanus Vaccine?: Unknown History of Pneumococcal: No History of Hepatitis B Vaccine: Unknown Procedures: CT scan of abdomen and pelvis Consultations: GI Medication Reconciliation New Medications: Ciprofloxacin (Ciprofloxacin HCl) 500 Mg Tab 500 MG PO BID for 10 Days, #20 TAB Metronidazole (Metronidazole) 500 Mg Tab 500 MG PO TID for 10 Days, #30 TAB Continued Medications: Biotin (Biotin 5000) 5 Mg Cap 5 MG DAILY Calcium Carbonate-Vitamin D (Calcium/Vitamin D) 1 Cap Cap 1 CAP PO QAM Lisinopril (Lisinopril) 20 Mg Tab 20 MG PO DAILY, #90 Discharge Exam Physical Exam: General Appearance: WD/WN Eyes: normal inspection ENT: normal ENT inspection Neck: supple, no adenopathy Respiratory/Chest: chest non-tender, lungs clear Cardiovascular: regular rate, rhythm, no edema, no murmur Abdomen / GI: normal bowel sounds, non tender, soft, no organomegaly Extremities: normal inspection, no calf tenderness, normal capillary refill Neurologic/Psychiatric: finger cobbler II-XII nml as tested, no motor/sensory deficits , alert, oriented x 3 Hospital Course 71 year old female with possible past history of ischemic colitis but no imaging to confirm this present with non specific colitis on CT of sigmoid with elevated WBC consistent with diverticulitis. Lactic acid is raised. She will be admitted as this may still be ischemic in nature and we will get an US of her mesenteric arteries. Ischemic colitis vs. diverticulitis - most likely diverticulitis however with past history of ischemia this cannot be ruled out. CT with IV contrast does not show any ischemic regions - US mesenteric arteries shows no evidence of high grade stenosis. - Blood cultures - cipro + metronidazole - NPO except meds and ice chips at admit and this was advanced and pt tolerated diet. - Zofran + Phenergan for nausea, morphine + acetaminophen for pain - lactic acid improved. - GI consult noted and pt will follow up in one to two weeks post dc. - IVF Hypertension - Continue lisinopril, monitor Cr Code - Full VTE Prophylaxis - SCDs, will hold off chemical given current GI bleeding, could be considered in the morning depending on repeat CBC Disposition - home Total Time Spent: Greater than 30 minutes This includes examination of the patient, discharge planning, medication reconciliation, and communication with other providers. Discharge Instructions Please refer to the electronic Patient Visit Report (Discharge Instructions) for additional information. Follow-Up GI in 1-2 weeks
[2016-08-03] MEDS ORDERED: CIPROFLOXACIN 500 MG TAB PO SCH (20:00)
[2016-11-24] MEDS ORDERED: LACT10CA3 PO (09:11)
[2017-01-26] MEDS ORDERED: OXYC-57 PO (12:28)
== END 2016-08-03 14:12 | disposition home or self-care (01) | DRG 395 ==
LOC: ENRESERVTM → ENRESERVDT → C.EDB 19:19 → C.MS4W 22:03
PROVIDERS: ADMIT Hospitalist; ATTEND Hospitalist
DX: K55.9 Vascular disorder of intestine, unspecified (principal); I10 Essential (primary) hypertension; Z90.2 Acquired absence of lung [part of]; Z85.118 Personal history of other malignant neoplasm of bronchus and lung; Z87.891 Personal history of nicotine dependence; Z79.899 Other long term (current) drug therapy

== ENCOUNTER → 2016-08-10 | Outpatient (CLI) | payer OTHER ==
[~2016-08-10] MED LIST changes: +CALCCAP17 PO; -CLTP PO; +CPR500 PO; -EVS60 PO; +LACT10CA3 PO; -LOSA1TAB PO; +LSN20 PO; +MTR500 PO; +OXYC-57 PO; -RANI150T3 PO
--- NOTE | 2016-08-10 17:07 | DIAGNOSTIC IMAGING REPORT ---
PA CHEST WITH ABDOMINAL SERIES CLINICAL HISTORY: Generalized abdominal pain. FINDINGS: A PA chest radiograph is compared to study dated 08/01/2016. The cardiomediastinal silhouette is unremarkable. There is atherosclerotic calcification of the thoracic aorta. Chronic interstitial thickening is unchanged. There is no airspace consolidation or pleural effusion. No pneumothorax is seen. The skeletal structures are osteopenic. There are numerous healed right-sided rib fractures. Supine and erect abdominal radiographs are correlated with abdominal CT dated 08/01/2016. Cholecystectomy clips are seen in the right upper quadrant. There is a nonobstructed abdominal bowel gas pattern. Moderate colonic fecal retention is observed. No evidence of intraperitoneal free air is seen. Vascular calcifications are noted in the pelvis. There is lumbosacral spondylosis and scoliosis. The bony pelvis appears intact. There is sclerotic change seen at the pubic symphysis. IMPRESSION: 1. No active disease in the chest. 2. Nonobstructed abdominal bowel gas pattern. Colonic fecal retention is observed. Electronically signed by: Ismael Berry M.D. 08/10/2016 5:06 PM Dictated Date/Time: 08/10/2016 5:03 PM
== END | disposition home or self-care (01) ==
LOC: C.RAD 16:30
PROVIDERS: ATTEND Registered Nurse
DX: K55.9 Vascular disorder of intestine, unspecified (principal); R10.9 Unspecified abdominal pain

== ENCOUNTER → 2016-09-16 | Outpatient (CLI) | payer OTHER ==
--- NOTE | 2016-09-16 11:20 | DIAGNOSTIC IMAGING REPORT ---
ABDOMEN ULTRASOUND FOR HERNIA CLINICAL HISTORY: ABD SWELLING,POSSIBLE VENTRAL HERNIA COMPARISON STUDY: Abdomen and pelvis CT 08/01/2016. FINDINGS: Within the umbilical location there is a moderate-sized hernia containing multiple peristalsing small bowel loops. No dilated loops of small bowel identified. IMPRESSION: Redemonstration of the moderate sized bowel containing umbilical hernia. Electronically signed by: Ayaz Coleman M.D. 09/16/2016 11:18 AM Dictated Date/Time: 09/16/2016 11:17 AM
== END | disposition home or self-care (01) ==
LOC: C.ULTRBC 10:17
PROVIDERS: ATTEND Nurse Practitioner
DX: K43.9 Ventral hernia without obstruction or gangrene (principal); K59.00 Constipation, unspecified

== ENCOUNTER → 2016-12-06 | Day surgery (SDC) | payer OTHER ==
[2016-11-24 09:13] VITALS: BMI 22.0
[~2016-12-06] VITALS: Ht 160 cm; Wt 56.8 kg
[~2016-12-06] MED LIST changes: -CPR500 PO; +LIDOCAINE HCL 2% 2 ML VIAL (20MG/ML) ONE; -MTR500 PO; -OXYC-57 PO; +PROPOFOL IV EMULSION 10 MG/ML 20 ML VIAL IV ONE; +SODIUM CHLORIDE 0.9% 500ML 500 ML IV ONE
[2016-12-06 08:19] VITALS: Ht 160 cm; Wt 56.8 kg
--- NOTE | 2016-12-06 08:31 | Endo History and Physical ---
History & Physical Date of Service: Dec 06, 2016. Chief Complaint: Ischemic colitis Referring Physician: Dr. Goyal History of Present Illness 71 yo CF who presents for colonoscopy secondary to ischemic colitis. Past Medical History Gastrointestinal Disorder, Hypertension, Other Past Surgical History Hx Cardiac Surgery: No Hx Internal Defibrillator: No Hx Pacemaker: No Hx Abdominal Surgery: Yes (MELISSA) Hx of Implantable Prosthesis: No Hx Post-Op Nausea and Vomiting: No Hx Cancer Surgery: Yes (RT UPPER LOBECTOMY) Hx Thoracic Surgery: No Hx Orthopedic: Yes (LT FOOT SURGERY, RT ANKLE ORIF) Hx Urinary Tract Surgery: No Family History None Social History Smoking Status: Former Smoker Hx Substance Use: No Hx Alcohol Use: Yes (1 DRINK/NIGHT) Allergies Coded Allergies: Atenolol (Verified Adverse Reaction, Mild, Chronic cough, 12/06/16) Bisphosphonates (Verified Adverse Reaction, Mild, GI side effects, 12/06/16 ) Current Medications Reported Home Medications Medications Dose Route/Sig Max Daily Dose Days Date Category Culturelle (Lactobacillus-Inulin) 1 Cap Cap 1 Cap PO DAILY 11/24/16 Reported Lisinopril 20 Mg Tab 20 Mg PO QAM 08/01/16 Reported Calcium/Vitamin D (Calcium Carbonate-Vitamin D) 1 Cap Cap 1 Cap PO QAM 08/01/16 Reported Biotin 5000 (Biotin) 5 Mg Cap 5 Mg PO QAM 07/08/14 Reported Vital Signs Weight (Kilograms): 56.82 Height (Feet): 5 Height (Inches): 3 Physical Exam General Appearance: WD/WN, no apparent distress Respiratory/Chest: Auscultation: breath sounds normal Cardiovascular: Heart Auscultation: RRR Abdomen: Bowel Sounds: normal Inspection & Palpation: soft, non-distended, no tenderness, guarding & rebound Assessment and Plan Assessment: 71 yo CF who presents for colonoscopy secondary to ischemic colitis. Plan: Proceed with colonoscopy.
[2016-12-06 08:34] VITALS: TEMP 36.4
--- NOTE | 2016-12-06 09:20 | Discharge Instructions ---
Endoscopy Patient Instructions Date / Procedure(s) Performed Dec 06, 2016. Colonoscopy Allergy Information Coded Allergies: Atenolol (Verified Adverse Reaction, Mild, Chronic cough, 12/06/16) Bisphosphonates (Verified Adverse Reaction, Mild, GI side effects, 12/06/16 ) Discharge Date / Findings Dec 06, 2016. Colon polyp Diverticulosis Internal hemorrhoids Medication Instructions OK to resume all medications today as prescribed Reported Home Medications Medications Dose Route/Sig Max Daily Dose Days Date Category Culturelle (Lactobacillus-Inulin) 1 Cap Cap 1 Cap PO DAILY 11/24/16 Reported Lisinopril 20 Mg Tab 20 Mg PO QAM 08/01/16 Reported Calcium/Vitamin D (Calcium Carbonate-Vitamin D) 1 Cap Cap 1 Cap PO QAM 08/01/16 Reported Biotin 5000 (Biotin) 5 Mg Cap 5 Mg PO QAM 07/08/14 Reported Provider Instructions Activity Restrictions - No exercising or heavy lifting for 24 hours. - Do not drink alcohol the day of the procedure. - Do not drive a car or operate machinery until the day after the procedure. - Do not make any important decisions or sign important papers in 24 hours after the procedure. Following Day: - Return to full activity which may include returning to work/school. Diet Start your diet with liquids and light foods (jello, soup, juice, toast). Then eat your usual diet if not nauseated. Treatment For Common After Affects For mild abdominal pain, bloating, or excessive gas: - Rest - Eat lightly - Lie on right side Follow-Up Information Follow-up with DR. ANDERSON as scheduled Anesthesia Information What You Should Know You have had a procedure that required some medicine to reduce anxiety and discomfort. This treatment is called moderate sedation. After receiving the treatment, you may be sleepy, but you will be able to breathe on your own. The effects of the treatment may last for several hours. Follow these instructions along with Activity/Diet recommendations noted above: * Do NOT do anything where dizziness or clumsiness would be dangerous. * Rest quietly at home today, then you can be up and about tomorrow. * Have a responsible person stay with you the rest of today. * You may have had an I.V. today. If so, you may take the dressing off later today. Recommendations Call your doctor if: * Trouble breathing * Continuous vomiting for more than 24 hours * Temperature above 101 degrees * Severe abdominal pain or bloating * Pain not relieved by pain medicine ordered * There is increased drainage or redness from any incision * A large amount of rectal bleeding greater than 2-3 tablespoons. (If you had a polyp/s removed or have hemorrhoids, a small amount of blood - from the rectum is to be expected.) * You have any unanswered questions or concerns. IN THE EVENT OF A SERIOUS EMERGENCY, GO TO THE NEAREST EMERGENCY ROOM Your discharge instructions were prepared by provider Raymon Mukherjee. Patient Instructions Signature Page Emily Valdovinos Patient (or Guardian) Signature/Date: I have read and understand the instructions given to me by my caregivers. Caregiver/RN/Doctor Signature/Date: The above-named patient and/or guardian has received patient instructions on this date. + Original Patient Signature Page (only) stays with chart. Please make copy for patient.
--- NOTE | 2016-12-06 09:25 | GI REPORT ---
Procedure Date: 12/06/2016 8:55 AM Procedure: Colonoscopy Indications: Follow-up of acute ischemic colitis Medicines: Monitored Anesthesia Care Complications: No immediate complications. Estimated Blood Loss: Estimated blood loss: none. Procedure: Pre-Anesthesia Assessment: - Prior to the procedure, a History and Physical was performed, and patient medications and allergies were reviewed. The patient's tolerance of previous anesthesia was also reviewed. The risks and benefits of the procedure and the sedation options and risks were discussed with the patient. All questions were answered, and informed consent was obtained. Prior Anticoagulants: The patient has taken no previous anticoagulant or antiplatelet agents. ASA Grade Assessment: II - A patient with mild systemic disease. After reviewing the risks and benefits, the patient was deemed in satisfactory condition to undergo the procedure. After I obtained informed consent, the scope was passed under direct vision. Throughout the procedure, the patient's blood pressure, pulse, and oxygen saturations were monitored continuously. The scope was introduced through the anus and advanced to the terminal ileum. The colonoscopy was performed without difficulty. The patient tolerated the procedure well. The quality of the bowel preparation was good. The terminal ileum, ileocecal valve, appendiceal orifice, and rectum were photographed. Findings: A 4 mm polyp was found in the descending colon. The polyp was sessile. The polyp was removed with a cold snare. Resection was complete, but the polyp tissue was not retrieved. Multiple small-mouthed diverticula were found in the sigmoid colon. Non-bleeding internal hemorrhoids were found during retroflexion. The hemorrhoids were small. Impression: - One 4 mm polyp in the descending colon, removed with a cold snare. Complete resection. Polyp tissue not retrieved. - Diverticulosis in the sigmoid colon. - Non-bleeding internal hemorrhoids. Recommendation: - Resume previous diet. - Continue present medications. - Repeat colonoscopy in 5 years for surveillance. - Return to primary care physician as previously scheduled. Raymon Mukherjee, DO 12/06/2016 9:25:01 AM This report has been signed electronically. Note Initiated On: 12/06/2016 8:55 AM I attest to the content of the Intraoperative Record and orders documented therein, exceptions below
[2016-12-06 09:50] VITALS: BP 94/69; PULSE 81; O2SAT 100
--- NOTE | 2016-12-06 10:48 | Anesthesiology Progress Note ---
Anesthesia Post Op Note Date & Time Dec 06, 2016 at 10:48 Vital Signs Pain Intensity: 0 Vital Signs Past 12 Hours Date Time Temp Pulse Resp B/P (MAP) Pulse Ox O2 Delivery O2 Flow Rate FiO2 12/06/16 09:50 81 18 94/69 (77) 100 Room Air 12/06/16 09:34 78 18 102/59 (73) 95 Room Air 12/06/16 09:19 79 16 89/57 (68) 92 Room Air 12/06/16 08:34 36.4 89 18 108/80 (89) 96 Room Air Notes Mental Status: alert / awake / arousable, participated in evaluation Pt Amnestic to Procedure: Yes Nausea / Vomiting: adequately controlled Pain: adequately controlled Airway Patency, RR, SpO2: stable & adequate BP & HR: stable & adequate Hydration State: stable & adequate Anesthetic Complications: no major complications apparent
== END | disposition home or self-care (01) ==
LOC: C.GI 08:09
PROVIDERS: ATTEND Internal Medicine
DX: K63.5 Polyp of colon (principal); K64.8 Other hemorrhoids; K57.30 Diverticulosis of large intestine without perforation or abscess without bleeding; K55.8 Other vascular disorders of intestine; I10 Essential (primary) hypertension; Z87.891 Personal history of nicotine dependence

== ENCOUNTER 2017-01-15 12:10 | Observation (INO) | payer OTHER ==
[~2017-01-15] VITALS: Ht 160 cm; Wt 59.2 kg
[~2017-01-15 12:10] MED LIST changes: -LIDOCAINE HCL 2% 2 ML VIAL (20MG/ML) ONE; -PROPOFOL IV EMULSION 10 MG/ML 20 ML VIAL IV ONE; -SODIUM CHLORIDE 0.9% 500ML 500 ML IV ONE
[2017-01-15] MEDS ORDERED: ONDANSETRON INJ 2 MG/ML 2 ML VIAL IV STA (13:14)
[2017-01-15] MEDS ORDERED: LACTATED RINGER'S 1000ML 1,000 ML IV ONE (13:15)
[2017-01-15 13:53] LABS: BASO % 0.2 %; BASO ABS # 0.03 K/uL (0-0.2); COMPLETE YES; EOS % 0.7 %; HEMATOCRIT 44.4 % (37-47); IG% 0.6 %; MEAN CELL VOLUME 87.2 fL (80-100); MEAN CORPUSCULAR HEMOGLOBIN 28.5 pg (25-34); MEAN CORPUSCULAR HGB CONC 32.7 g/dl (32-36); MEAN PLATELET VOLUME 8.9 fL (7.4-10.4); MONO % 9.3 %; NEUT % 80.2 %; PLATELET COUNT 323 K/uL (130-400); RED BLOOD COUNT 5.09 M/uL (4.2-5.4); WHITE BLOOD COUNT 16.73 K/uL (4.8-10.8)
[2017-01-15 13:58] LABS: MANUAL MICROSCOPIC REQUIRED? NO; REVIEW REQ? NO; URINE APPEARANCE CLEAR (CLEAR); URINE BILIRUBIN NEG (NEG); URINE COLOR YELLOW; URINE NITRITE NEG (NEG); UROBILINOGEN NEG (NEG)
[2017-01-15 14:06] LABS: CHLORIDE 101 mmol/L (98-107); POTASSIUM 3.4 mmol/L (3.5-5.1); SODIUM 139 mmol/L (136-145)
[2017-01-15 14:11] LABS: ALT/SGPT 27 U/L (12-78); AST/SGOT 20 U/L (15-37); BLOOD UREA NITROGEN 22 mg/dl (7-18); BUN/CREATININE RATIO 20.7 (10-20); CALCIUM 9.3 mg/dl (8.5-10.1); CARBON DIOXIDE 27 mmol/L (21-32); CREATININE 1.07 mg/dl (0.60-1.20); GLUCOSE 108 mg/dl (70-99)
[2017-01-15 14:16] LABS: ALKALINE PHOSPHATASE 133 U/L (45-117)
[2017-01-15 14:35] LABS: CKMB/CK RATIO 1.6 (0-3.0)
[2017-01-15] MEDS ORDERED: LACT10CA3 PO (14:40)
--- NOTE | 2017-01-15 17:16 | EMERGENCY ROOM VISIT NOTE ---
ED Visit Note First contact with patient: 13:00 The patient was seen and examined with David Guerin PA-C. I agree with the history, physical and findings. Please see the note for disposition and details. The patient has a colitis on CT imaging. This is concerning for ischemia as she has had this in the past. Consultation was made with internal medicine. The patient was evaluated for further management.
--- NOTE | 2017-01-15 17:57 | DIAGNOSTIC IMAGING REPORT ---
CT HEAD WITHOUT CONTRAST (CT) CLINICAL HISTORY: Head trauma. Syncope. COMPARISON STUDY: 05/04/2010 TECHNIQUE: Axial CT of the brain is performed from the vertex to the skull base. IV contrast was not administered for this examination. A dose lowering technique was utilized adhering to the principles of ALARA. CT DOSE: 537.48 mGy.cm FINDINGS: No intra or extra-axial mass lesions are visualized. There is no CT evidence of acute cortical infarction. There is no evidence of midline shift. There is no acute hemorrhage. No calvarial fractures are visualized. There are minimal white matter hypodensities likely on a small vessel basis. 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 There is no evidence of pathologic ventricular dilatation. There is no evidence of acute sinusitis IMPRESSION: No acute intracranial findings Electronically signed by: Jose Mott M.D. 01/15/2017 5:56 PM Dictated Date/Time: 01/15/2017 5:55 PM
[2017-01-15] MEDS ORDERED: OPTIRAY 320 IV PRN (18:00)
--- NOTE | 2017-01-15 18:04 | DIAGNOSTIC IMAGING REPORT ---
CT ABD/PELVIS IV AND ORAL CONT CLINICAL HISTORY: Trauma. Vomiting. COMPARISON STUDY: 08/01/2016 TECHNIQUE: Following the IV administration of 115 mL of Optiray-320, CT scan of the abdomen and pelvis was performed from the lung bases to the proximal femurs. Images are reviewed in the axial, sagittal, and coronal planes. IV contrast was administered without complication. A dose lowering technique was utilized adhering to the principles of ALARA. CT DOSE: 267.59 mGy.cm FINDINGS: Lower chest: The heart is normal in size and configuration, without pericardial effusion. The lung bases and pleural spaces are clear. There is a hiatal hernia. Liver: No focal hepatic masses are visualized. There is no evidence of acute hepatic injury. Gallbladder: Surgically absent Spleen: There is a calcified granuloma. There is no evidence of acute splenic injury. Pancreas: Unremarkable. Adrenal glands: Unremarkable. Kidneys: There is symmetric renal cortical enhancement. The kidneys are normal in size without hydronephrosis. Bowel: There are no transition zones to indicate bowel obstruction. By history the appendix is surgically absent. There is diverticulosis. There are no acute peridiverticular inflammatory changes. There is a large umbilical hernia containing multiple small bowel loops. This does not result in bowel obstruction. There is mild bowel wall thickening involving the descending colon consistent with a mild nonspecific colitis. Peritoneum: There is no intraperitoneal free air or abdominal ascites. Vasculature: The abdominal aorta is normal in course and caliber. Adenopathy: None. Pelvic viscera: The bladder, and pelvic viscera are unremarkable. Skeletal structures: There are chronic sclerotic changes involving the left symphysis pubis. No destructive changes are visualized. IMPRESSION: 1. No evidence of acute intra-abdominal or pelvic injury 2. No evidence of bowel obstruction. No evidence of free air 3. Large umbilical/ventral hernia containing multiple small bowel loops. No current evidence of obstruction 4. Mild bowel wall thickening involving the descending colon consistent with a nonspecific colitis Electronically signed by: Jose Mott M.D. 01/15/2017 6:02 PM Dictated Date/Time: 01/15/2017 5:56 PM
[2017-01-15 19:55] VITALS: Ht 160 cm; Wt 59.2 kg
--- NOTE | 2017-01-15 20:47 | History and Physical ---
History & Physical Date & Time of Service: Jan 15, 2017 at 20:47 Chief Complaint: Vomiting, Nausea Primary Care Physician: Ramses Goyal D.O. History of Present Illness Source: patient, clinic records This is a 71 y/o F w/ h/o of HTN who presents after 2 syncopal episodes as well as accompanying episode of emesis while on the toilet today. She reports that she was fine all week. Her son and grandchildren were here for the game and she was busy, but mostly well. She denies any accompanying chest pain/ shortness of breath. She doesn't know how long she was unconsciousness for She was able to call her son the second time who convinced her to come to the hospital She does have a history of ischemic colitis. Recent colonoscopy without evidence of diverticulosis. She denies abdominal pain, melena, hematochezia Patient is refusing antibiotics because she is worried about her upcoming surgery being cancelled. She also has family coming and doesn't want to be in the hospital. Past Medical/Surgical History Medical Problems: (1) Hypertension Status: Chronic (2) Ischemic colitis Status: Resolved (3) right upper lobectomy Status: Resolved Surgical Problems: (1) History of cholecystectomy Status: Resolved Family History Cancer Diabetes mellitus Gallbladder disease Heart disease Hypertension Kidney disease Lung disease Seizures Social History Smoking Status: Former Smoker Smokeless Tobacco Use: No Alcohol Use: none Drug Use: none Marital Status: Housing status: lives with family Occupational Status: other Immunizations History of Influenza Vaccine: Yes History of Tetanus Vaccine?: Unknown History of Pneumococcal: No History of Hepatitis B Vaccine: Unknown Multi-Drug Resistant Organisms History of MDRO: No Allergies Coded Allergies: Atenolol (Verified Adverse Reaction, Mild, Chronic cough, 01/15/17) Bisphosphonates (Verified Adverse Reaction, Mild, GI side effects, ) Home Medications Scheduled Biotin (Biotin 5000), 5 MG PO QAM Calcium Carbonate-Vitamin D (Calcium/Vitamin D), 1 CAP PO QAM Lisinopril (Lisinopril), 20 MG PO QAM Scheduled PRN Lactobacillus-Inulin (Culturelle), 1 CAP PO DAILY PRN for Review of Systems Constitutional: No fever, No chills, No sweats, No weakness, No fatigue Eyes: No worsening of vision Respiratory: No cough, No sputum, No wheezing, No shortness of breath, No dyspnea on exertion, No dyspnea at rest Cardiovascular: No chest pain Abdomen: No pain, No nausea, No vomiting, No diarrhea Genitourinary - Female: No dysuria, No urinary frequency, No urinary urgency Physical Exam Vital Signs Date Time Temp Pulse Resp B/P (MAP) Pulse Ox O2 Delivery O2 Flow Rate FiO2 01/15/17 19:55 Room Air 01/15/17 19:09 37.1 79 16 125/73 95 Room Air 01/15/17 17:54 64 16 124/75 97 01/15/17 16:15 98 16 124/75 95 Room Air 01/15/17 14:50 89 14 125/91 95 Room Air 01/15/17 13:36 84 16 122/76 99 Room Air 92 110/95 86 125/84 01/15/17 12:33 36.3 91 20 89/62 98 Room Air General Appearance: no apparent distress Eyes: PERRL, EOMI ENT: hearing grossly normal Neck: no adenopathy, no JVD Respiratory/Chest: lungs clear, normal breath sounds, no respiratory distress, no accessory muscle use Cardiovascular: regular rate, rhythm, no edema, no murmur Abdomen/GI: normal bowel sounds, soft, + tenderness (rlq, hernia) Back: no CVA tenderness Extremities/Musculoskelatal: no calf tenderness, no pedal edema Neurologic/Psych: alert, normal mood/affect, normal reflexes, oriented x 3 Diagnostics Laboratory Results Results Past 24 Hours Test 01/15/17 13:35 01/15/17 13:40 01/15/17 13:51 01/15/17 14:12 Range/Units White Blood Count 16.73 4.8-10.8 K/uL Red Blood Count 5.09 4.2-5.4 M/uL Hemoglobin 14.5 12.0-16.0 g/dL Hematocrit 44.4 37-47 % Mean Corpuscular Volume 87.2 80-100 fL Mean Corpuscular Hemoglobin 28.5 25-34 pg Mean Corpuscular Hemoglobin Concent 32.7 32-36 g/dl Platelet Count 323 130-400 K/uL Mean Platelet Volume 8.9 7.4-10.4 fL Neutrophils (%) (Auto) 80.2 % Lymphocytes (%) (Auto) 9.0 % Monocytes (%) (Auto) 9.3 % Eosinophils (%) (Auto) 0.7 % Basophils (%) (Auto) 0.2 % Neutrophils # (Auto) 13.44 1.4-6.5 K/uL Lymphocytes # (Auto) 1.50 1.2-3.4 K/uL Monocytes # (Auto) 1.55 0.11-0.59 K/uL Eosinophils # (Auto) 0.11 0-0.5 K/uL Basophils # (Auto) 0.03 0-0.2 K/uL RDW Standard Deviation 41.4 36.4-46.3 fL RDW Coefficient of Variation 12.8 11.5-14.5 % Immature Granulocyte % (Auto) 0.6 % Immature Granulocyte # (Auto) 0.10 0.00-0.02 K/uL Sodium Level 139 136-145 mmol/L Potassium Level 3.4 3.5-5.1 mmol/L Chloride Level 101 98-107 mmol/L Carbon Dioxide Level 27 21-32 mmol/L Anion Gap 11.0 3-11 mmol/L Blood Urea Nitrogen 22 7-18 mg/dl Creatinine 1.07 0.60-1.20 mg/dl Est Creatinine Clear Calc Drug Dose 39.3 ml/min Estimated GFR () 60.1 Estimated GFR (Non- 51.8 BUN/Creatinine Ratio 20.7 10-20 Random Glucose 108 70-99 mg/dl Calcium Level 9.3 8.5-10.1 mg/dl Total Bilirubin 0.7 0.2-1 mg/dl Direct Bilirubin < 0.1 0-0.2 mg/dl Aspartate Amino Transf (AST/SGOT) 20 15-37 U/L Alanine Aminotransferase (ALT/SGPT) 27 12-78 U/L Alkaline Phosphatase 133 45-117 U/L Total Creatine Kinase 77 26-192 U/L Creatine Kinase MB 1.2 0.5-3.6 ng/ml Creatine Kinase MB Ratio 1.6 0-3.0 Total Protein 8.1 6.4-8.2 gm/dl Albumin 4.2 3.4-5.0 gm/dl Lipase 165 73-393 U/L Urine Color YELLOW Urine Appearance CLEAR CLEAR Urine pH 5.0 4.5-7.5 Urine Specific [place] 1.020 1.000-1.030 Urine Protein NEG NEG Urine Glucose (UA) NEG NEG Urine Ketones NEG NEG Urine Occult Blood NEG NEG Urine Nitrite NEG NEG Urine Bilirubin NEG NEG Urine Urobilinogen NEG NEG Urine Leukocyte Esterase TRACE NEG Urine WBC (Auto) 1-5 0-5 /hpf Urine RBC (Auto) 0-4 0-4 /hpf Urine Hyaline Casts (Auto) 1-5 0-5 /lpf Urine Epithelial Cells (Auto) 10-20 0-5 /lpf Urine Bacteria (Auto) NEG NEG Lactic Acid Level 2.4 0.4-2.0 mmol/L Impression Assessment and Plan Syncopal episode likely vagal vs. infection will monitor on Tele for arrhythmias etc. Non specific colitis Unlikely Ischemic, per abdominal CT Elevated lactate and WBC count, though no history Patient is refusing antibiotics; shes not toxic currently but explained risks Has surgery scheduled for hernia repair on Monday with dr. Robles Consult Surgery- patient concerned about missing surgery Hypokalemia replace with PO Recheck BMP AM HTN Continue Lisinopril DVT proph; Lovenox Code: Full Attending Addendum: I have physically seen and examined this patient, have directed the resident's medical activities, and agree with the H&P as noted above with the following exceptions as noted. The patient is awake, alert and oriented 3, well-developed and well-nourished , normocephalic and atraumatic, lying in bed and in no acute distress. HEENT--PERRL, EOMI, mucous membranes and oropharynx dry. Neck--supple, no JVD or bruits, thyroid normal, trachea midline, no adenopathy. Heart--normal S1 and S2, no extra beats, no murmurs, rubs or gallops. Lungs--clear bilaterally with good air movement, no respiratory distress, no accessory muscle use. Abdomen--normal bowel sounds and soft, nontender and nondistended, no hernias or masses, no organomegaly. Extremities--no cyanosis, clubbing or edema. There are good distal pulses b/l. Dermatologic--normal skin turgor, normal color, warm and dry, no abnormal lymph nodes, no rash. Neurologic--cranial nerves II through XII grossly intact. Rheumatologic--normal range of motion. Psychiatric--normal affect. Assessment and Plan: Nonspecific colitis-- Admitted to [facility]. Nothing by mouth except ice chips and meds. NSS with KCl 20 mEq 100 ML's per hour Consult general surgery Dr. Robles, and she is scheduled to have hernia repair surgery with in 2 days. She is concerned about being on antibiotics for possibly delaying her surgery. Hypertension--continue lisinopril with hold parameters. Level of Care Med/Surg Advanced Directives Existing Advance Directive: No Existing Living Will: No Existing Power of [employer] Machine Operator: No Resuscitation Status FULL RESUSCITATION VTE Prophylaxis Given or contraindicated: SCD's Social Service Consult None Apply
[2017-01-15] MEDS ORDERED: NITROGLYCERIN 0.4 MG SL PER TAB CHARGE SL PRN (21:00)
[2017-01-15] MEDS ORDERED: ACETAMINOPHEN 325 MG TAB PO PRN (21:00)
[2017-01-15] MEDS ORDERED: POLYETHYLENE (MIRALAX) 17 GM PACK PO PRN (21:00)
[2017-01-15] MEDS ORDERED: ALUMINUM/MAGNESIUM/SIMETH (MAALOX MAX) 30 ML UDC PO PRN (21:00)
[2017-01-15] MEDS ORDERED: ONDANSETRON INJ 2 MG/ML 2 ML VIAL IV PRN (21:00)
[2017-01-15] MEDS ORDERED: MAGNESIUM HYDROXIDE SUSP 30 ML UDC PO PRN (21:00)
[2017-01-15 21:21] VITALS: O2SAT 97
[2017-01-15 21:39] VITALS: BP 144/89; PULSE 86; TEMP 36.9; O2SAT 100
[2017-01-15] MEDS ORDERED: NSS + 20MEQ KCL 1000ML 1,000 ML IV SCH (21:45)
[2017-01-15] MEDS ORDERED: ENOXAPARIN 40 MG/0.4 ML SYR SC SCH (22:00)
[2017-01-15] MEDS ORDERED: IV FLUIDS COMPLETED PRN (22:00)
[2017-01-15 22:09] LABS: PROTHROMBIN TIME (PATIENT) 10.6 SECONDS (9.0-12.0)
[2017-01-15] MEDS ORDERED: POTASSIUM CHLORIDE 20 MEQ TABCR PO STA (23:29)
[2017-01-15 23:48] VITALS: BP 130/79; PULSE 84; TEMP 37.1; O2SAT 95
[2017-01-16 02:44] VITALS: BP 113/73; PULSE 81; TEMP 36.9; O2SAT 94
[2017-01-16 06:23] LABS: BASO % 0.3 %; BASO ABS # 0.02 K/uL (0-0.2); COMPLETE YES; EOS % 1.8 %; HEMATOCRIT 35.5 % (37-47); IG% 0.4 %; LYMPH % 25.4 %; LYMPH ABS # 1.79 K/uL (1.2-3.4); MEAN CELL VOLUME 86.4 fL (80-100); MEAN CORPUSCULAR HEMOGLOBIN 28.5 pg (25-34); MEAN PLATELET VOLUME 8.8 fL (7.4-10.4); MONO % 7.2 %; NEUT % 64.9 %; PLATELET COUNT 266 K/uL (130-400); RED BLOOD COUNT 4.11 M/uL (4.2-5.4); WHITE BLOOD COUNT 7.06 K/uL (4.8-10.8)
[2017-01-16 06:54] LABS: BUN/CREATININE RATIO 20.5 (10-20); CALCIUM 8.1 mg/dl (8.5-10.1); CREATININE 0.7 mg/dl (0.60-1.20); POTASSIUM 4.1 mmol/L (3.5-5.1)
[2017-01-16 07:45] VITALS: BP 125/80; PULSE 83; TEMP 37; O2SAT 99
[2017-01-16] MEDS ORDERED: LISINOPRIL 20 MG TAB PO SCH (09:00)
--- NOTE | 2017-01-16 10:47 | Medical Consult ---
Consultation Date of Consultation: Jan 16, 2017. Attending Physician: Alf Eugene MD, PhD Reason for Consultation: Upcoming hernia surgery. History of Present Illness 71-year-old female with past medical history of ischemic colitis known to General Surgery- has upcoming lap incisional hernia repair tomorrow with Dr. Robles. Patient reports that she was feeling well all last week, her family came to visit for football game. She reports that she had two syncopal episodes at home resulting in her presenting to ED for fear of concussion. Patient denies bloody bowel movement, but in ED records she did report to have an episode of a bloody bowel movement yesterday. WBC elevated yesterday at 16.73- down to 7 today. Patient currently denies abdominal pain, denies nausea or vomiting. Patient refused abx yesterday in hopes that surgery would still be performed on Monday. Previous admission for colitis in July of this year- patient was seen by Dr. Mukherjee during visit. Recent colonoscopy (Nov, 2016) revealed no evidence of diverticulosis. Past Medical/Surgical History Medical Problems: (1) Colitis Status: Acute (2) GI bleed Status: Acute Family History Cancer Diabetes mellitus Gallbladder disease Heart disease Hypertension Kidney disease Lung disease Seizures Social History Smoking Status: Former Smoker Smokeless Tobacco Use: No Alcohol Use: none Drug Use: none Marital Status: Housing Status: lives with significant other Occupation Status: other Allergies Coded Allergies: Atenolol (Verified Adverse Reaction, Mild, Chronic cough, 01/15/17) Bisphosphonates (Verified Adverse Reaction, Mild, GI side effects, ) Current Inpatient Medications Current Inpatient Medications Medications (Trade) Dose Ordered Sig/Adan Route Start Time Stop Time Status Last Admin Dose Admin Ioversol (Optiray 320) 116 ml UD PRN IV 01/15/17 18:00 01/19/17 17:59 Enoxaparin Sodium (Lovenox Inj) 40 mg Q24H SC 01/15/17 22:00 02/14/17 21:59 01/15/17 23:46 40 MG Potassium Chloride/Sodium Chloride 1,000 ml @ 75 mls/hr [id number] IV 01/15/17 21:45 02/14/17 21:44 01/15/17 21:49 75 MLS/HR Acetaminophen (Tylenol Tab) 650 mg Q4H PRN PO 01/15/17 21:00 02/14/17 20:59 Al Hydrox/Mg Hydrox/Simethicone (Maalox Max Susp) 15 ml Q4H PRN PO 01/15/17 21:00 02/14/17 20:59 Magnesium Hydroxide (Milk Of Magnesia Susp) 30 ml Q12H PRN PO 01/15/17 21:00 02/14/17 20:59 Ondansetron HCl (Zofran Inj) 4 mg Q6H PRN IV 01/15/17 21:00 02/14/17 20:59 Nitroglycerin (Nitrostat Tab) 0.4 mg UD PRN SL 01/15/17 21:00 02/14/17 20:59 Polyethylene (Miralax Powder Packet) 17 gm DAILY PRN PO 01/15/17 21:00 02/14/17 20:59 Lisinopril (Zestril Tab) 20 mg QAM PO 01/16/17 09:00 02/15/17 08:59 01/16/17 07:19 20 MG Miscellaneous (Iv Fluids Completed) 1 ea PRN PRN N/A 01/15/17 22:00 01/15/18 21:59 Review of Systems Constitutional: No fever, No chills Abdomen: No pain, No nausea, No vomiting, No diarrhea, No constipation, No GI bleeding Physical Exam Date Time Temp Pulse Resp B/P (MAP) Pulse Ox O2 Delivery O2 Flow Rate FiO2 01/16/17 08:01 Room Air 01/16/17 07:45 37.0 83 18 125/80 (95) 99 Room Air 01/16/17 04:00 Room Air 01/16/17 02:44 36.9 81 17 113/73 (86) 94 Room Air 01/15/17 23:59 Room Air 01/15/17 23:48 37.1 84 18 130/79 (96) 95 Room Air 01/15/17 21:39 36.9 86 16 144/89 (107) 100 Room Air 01/15/17 21:21 87 16 127/84 97 01/15/17 19:55 Room Air 01/15/17 19:09 37.1 79 16 125/73 95 Room Air 01/15/17 17:54 64 16 124/75 97 01/15/17 16:15 98 16 124/75 95 Room Air 01/15/17 14:50 89 14 125/91 95 Room Air 01/15/17 13:36 84 16 122/76 99 Room Air 92 110/95 86 125/84 01/15/17 12:33 36.3 91 20 89/62 98 Room Air General Appearance: WD/WN, no apparent distress Abdomen/GI: normal bowel sounds, non tender, soft Laboratory Results Last 24 Hours Test 01/15/17 13:35 01/15/17 13:40 01/15/17 13:51 01/15/17 14:12 White Blood Count 16.73 K/uL Red Blood Count 5.09 M/uL Hemoglobin 14.5 g/dL Hematocrit 44.4 % Mean Corpuscular Volume 87.2 fL Mean Corpuscular Hemoglobin 28.5 pg Mean Corpuscular Hemoglobin Concent 32.7 g/dl Platelet Count 323 K/uL Mean Platelet Volume 8.9 fL Neutrophils (%) (Auto) 80.2 % Lymphocytes (%) (Auto) 9.0 % Monocytes (%) (Auto) 9.3 % Eosinophils (%) (Auto) 0.7 % Basophils (%) (Auto) 0.2 % Neutrophils # (Auto) 13.44 K/uL Lymphocytes # (Auto) 1.50 K/uL Monocytes # (Auto) 1.55 K/uL Eosinophils # (Auto) 0.11 K/uL Basophils # (Auto) 0.03 K/uL RDW Standard Deviation 41.4 fL RDW Coefficient of Variation 12.8 % Immature Granulocyte % (Auto) 0.6 % Immature Granulocyte # (Auto) 0.10 K/uL Sodium Level 139 mmol/L Potassium Level 3.4 mmol/L Chloride Level 101 mmol/L Carbon Dioxide Level 27 mmol/L Anion Gap 11.0 mmol/L Blood Urea Nitrogen 22 mg/dl Creatinine 1.07 mg/dl Est Creatinine Clear Calc Drug Dose 39.3 ml/min Estimated GFR () 60.1 Estimated GFR (Non- 51.8 BUN/Creatinine Ratio 20.7 Random Glucose 108 mg/dl Calcium Level 9.3 mg/dl Total Bilirubin 0.7 mg/dl Direct Bilirubin < 0.1 mg/dl Aspartate Amino Transf (AST/SGOT) 20 U/L Alanine Aminotransferase (ALT/SGPT) 27 U/L Alkaline Phosphatase 133 U/L Total Creatine Kinase 77 U/L Creatine Kinase MB 1.2 ng/ml Creatine Kinase MB Ratio 1.6 Total Protein 8.1 gm/dl Albumin 4.2 gm/dl Lipase 165 U/L Urine Color YELLOW Urine Appearance CLEAR Urine pH 5.0 Urine Specific [place] 1.020 Urine Protein NEG Urine Glucose (UA) NEG Urine Ketones NEG Urine Occult Blood NEG Urine Nitrite NEG Urine Bilirubin NEG Urine Urobilinogen NEG Urine Leukocyte Esterase TRACE Urine WBC (Auto) 1-5 /hpf Urine RBC (Auto) 0-4 /hpf Urine Hyaline Casts (Auto) 1-5 /lpf Urine Epithelial Cells (Auto) 10-20 /lpf Urine Bacteria (Auto) NEG Lactic Acid Level 2.4 mmol/L Test 01/15/17 21:49 01/16/17 06:02 Prothrombin Time 10.6 SECONDS Prothromb Time International Ratio 1.0 Activated Partial Thromboplast Time 24.7 SECONDS Partial Thromboplastin Ratio 1.0 White Blood Count 7.06 K/uL Red Blood Count 4.11 M/uL Hemoglobin 11.7 g/dL Hematocrit 35.5 % Mean Corpuscular Volume 86.4 fL Mean Corpuscular Hemoglobin 28.5 pg Mean Corpuscular Hemoglobin Concent 33.0 g/dl Platelet Count 266 K/uL Mean Platelet Volume 8.8 fL Neutrophils (%) (Auto) 64.9 % Lymphocytes (%) (Auto) 25.4 % Monocytes (%) (Auto) 7.2 % Eosinophils (%) (Auto) 1.8 % Basophils (%) (Auto) 0.3 % Neutrophils # (Auto) 4.58 K/uL Lymphocytes # (Auto) 1.79 K/uL Monocytes # (Auto) 0.51 K/uL Eosinophils # (Auto) 0.13 K/uL Basophils # (Auto) 0.02 K/uL RDW Standard Deviation 41.7 fL RDW Coefficient of Variation 13.1 % Immature Granulocyte % (Auto) 0.4 % Immature Granulocyte # (Auto) 0.03 K/uL Sodium Level 141 mmol/L Potassium Level 4.1 mmol/L Chloride Level 109 mmol/L Carbon Dioxide Level 26 mmol/L Anion Gap 6.0 mmol/L Blood Urea Nitrogen 14 mg/dl Creatinine 0.70 mg/dl Est Creatinine Clear Calc Drug Dose 60.1 ml/min Estimated GFR () 100.3 Estimated GFR (Non- 86.6 BUN/Creatinine Ratio 20.5 Random Glucose 87 mg/dl Calcium Level 8.1 mg/dl Assessment & Plan 71-year-old female admitted for non-specific colitis, upcoming incisional hernia repair with Dr. Robles. Discussed patient with Dr. Robles- will cancel surgery for tomorrow. Patient to follow-up in clinic to reschedule. Will discuss patient with Dr. Mukherjee since he has previously seen patient for colitis. UPDATE- spoke with Dr. Mukherjee- patient can follow-up in GI clinic this week or next as outpatient. No need for GI consult. Patient to follow-up with Dr. Robles in the office after discharge. Colitis to be managed by Medicine Service.
[2017-01-16 10:57] VITALS: BP 115/77; PULSE 79; TEMP 36.8; O2SAT 98
--- NOTE | 2017-01-16 12:26 | EMERGENCY ROOM VISIT NOTE ---
ED Visit Note First contact with patient: 13:00 Chief Complaint: I've been having nausea, vomiting and diarrhea. History of Present Illness: Ms. Russell is a 71-year-old white female who ambulates into the ED accompanied by her son complaining of nausea, vomiting, diarrhea and syncope. Historically patient reports she has a history of syncope, diverticulitis and ischemic colitis. Patient reports for multiple years she has been having episodes of syncope. Multiple causes were possibly identified before were later ruled out. She reports she has had no episodes of syncope for the last few years. Patient goes on to report that she slipped at home 2 days ago and struck her head on a wall. She had no loss of consciousness and was did not collapse on the floor. Since this injury she reports she has been having no headaches or signs of head injury. She goes on to report this morning she awoke normally, had breakfast and then went shopping. She returned home and started feeling nauseated. She went to the bathroom and reports that she vomited on herself, had a large episodes of diarrhea and then had a syncopal episode where she collapsed in the bathroom floor. She is unsure if she struck her head at that time and does not know how long she was lying on the floor. When she awoke she stood up and went out and told her son she was not feeling well. She then reports that she went to the bathroom again and once again vomited on herself, had a large episode of diarrhea and a syncopal episode. Her son encouraged her to come to the emergency department for further evaluation and care. On arrival in the emergency department patient is complaining of nausea only. She has not identified any aggravating or alleviating factors related to her nausea. She has not taken a medication for nausea prior to arrival at the hospital. She denies any associated symptoms with her nausea. Additionally she reports in 2 days' she is scheduled to have abdominal surgery for repair of incisional hernia from a previous surgery. She does report she has a mild fullness sensation in this area always and that is not new today. She denies any recent fevers, chills, sweats, skin eruptions, skin color changes , upper respiratory tract symptoms, cough, wheezing, shortness of breath, chest pain, palpitations, orthopnea, dependent edema, previous clots, claudication, cramping, abdominal pain outside of her upcoming surgery site, bloody vomitus, bloody stools, black/tarry stools, urinary symptoms, hematuria. Review of Systems: As noted above in history of present illness. All body systems were reviewed and found to be negative as noted above. Past Medical History: As previously noted, hypertension, colitis, lung cancer, status post right lobectomy, cholecystectomy and a lymph node removed from her abdomen. Current Medications: Medications Dose Route/Sig Max Daily Dose Days Date Category Culturelle (Lactobacillus-Inulin) 1 Cap Cap 1 Cap PO DAILY PRN 01/15/17 Reported Lisinopril 20 Mg Tab 20 Mg PO QAM 08/01/16 Reported Calcium/Vitamin D (Calcium Carbonate-Vitamin D) 1 Cap Cap 1 Cap PO QAM 08/01/16 Reported Biotin 5000 (Biotin) 5 Mg Cap 5 Mg PO QAM 07/08/14 Reported Allergies to Medications: Biphosphonates, atenolol. Social History: Patient is not employed; she feels safe in her home environment ; she denies tobacco use. Physical Examination: Vital Signs: Date Time Temp Pulse Resp B/P (MAP) Pulse Ox O2 Delivery O2 Flow Rate FiO2 01/15/17 19:55 Room Air 01/15/17 19:09 37.1 79 16 125/73 95 Room Air 01/15/17 17:54 64 16 124/75 97 01/15/17 16:15 98 16 124/75 95 Room Air 01/15/17 14:50 89 14 125/91 95 Room Air 01/15/17 13:36 84 16 122/76 99 Room Air 92 110/95 86 125/84 01/15/17 12:33 36.3 91 20 89/62 98 Room Air GENERAL: 71-year-old female in no acute distress, nontoxic-appearing, afebrile and hemodynamically stable. NEUROLOGICAL: Awake, alert and oriented to person, place and time. Answering questions appropriately and following commands. Normal gait. Good hand eye coordination. SKIN: Warm, dry and pink. No soft tissue eruptions or trauma noted. HEENT: Atraumatic and normocephalic. PERRLA. Sclera white and conjunctiva pink. No drainage from naris. Oral cavity moist and pink. Pharynx is nonerythematous or edematous. Speech normal. No lymphadenopathy. Trachea midline. No jugular venous distention. BACK: No tenderness over the bony spine. No CVA tenderness. THORAX: Lungs sounds are clear to auscultation and equal bilaterally with symmetrical chest wall. No wheezing, rales or rhonchi. No crepitus, tenderness , subcutaneous air or deformities noted. HEART: Regular rate and rhythm. No gallops, rubs or murmurs are appreciated. ABDOMEN: Flat and soft with mild tenderness over her hernia over the right mid quadrant area. Positive bowel sounds in all quadrants. No guarding, rigidity or organomegaly. EXTREMITIES: Moves all extremities well on command and with purpose. All distal neurovascular statuses are intact and equal bilaterally. No calf tenderness or cords. ED Course: Patient is assessed as noted above. Patient's medication list was reviewed. Laboratory Testing Test 01/15/17 13:35 01/15/17 13:40 01/15/17 13:51 01/15/17 14:12 Range/Units White Blood Count 16.73 4.8-10.8 K/uL Red Blood Count 5.09 4.2-5.4 M/uL Hemoglobin 14.5 12.0-16.0 g/dL Hematocrit 44.4 37-47 % Mean Corpuscular Volume 87.2 80-100 fL Mean Corpuscular Hemoglobin 28.5 25-34 pg Mean Corpuscular Hemoglobin Concent 32.7 32-36 g/dl Platelet Count 323 130-400 K/uL Mean Platelet Volume 8.9 7.4-10.4 fL Neutrophils (%) (Auto) 80.2 % Lymphocytes (%) (Auto) 9.0 % Monocytes (%) (Auto) 9.3 % Eosinophils (%) (Auto) 0.7 % Basophils (%) (Auto) 0.2 % Neutrophils # (Auto) 13.44 1.4-6.5 K/uL Lymphocytes # (Auto) 1.50 1.2-3.4 K/uL Monocytes # (Auto) 1.55 0.11-0.59 K/uL Eosinophils # (Auto) 0.11 0-0.5 K/uL Basophils # (Auto) 0.03 0-0.2 K/uL RDW Standard Deviation 41.4 36.4-46.3 fL RDW Coefficient of Variation 12.8 11.5-14.5 % Immature Granulocyte % (Auto) 0.6 % Immature Granulocyte # (Auto) 0.10 0.00-0.02 K/uL Sodium Level 139 136-145 mmol/L Potassium Level 3.4 3.5-5.1 mmol/L Chloride Level 101 98-107 mmol/L Carbon Dioxide Level 27 21-32 mmol/L Anion Gap 11.0 3-11 mmol/L Blood Urea Nitrogen 22 7-18 mg/dl Creatinine 1.07 0.60-1.20 mg/dl Est Creatinine Clear Calc Drug Dose 39.3 ml/min Estimated GFR () 60.1 Estimated GFR (Non- 51.8 BUN/Creatinine Ratio 20.7 10-20 Random Glucose 108 70-99 mg/dl Calcium Level 9.3 8.5-10.1 mg/dl Total Bilirubin 0.7 0.2-1 mg/dl Direct Bilirubin < 0.1 0-0.2 mg/dl Aspartate Amino Transf (AST/SGOT) 20 15-37 U/L Alanine Aminotransferase (ALT/SGPT) 27 12-78 U/L Alkaline Phosphatase 133 45-117 U/L Total Creatine Kinase 77 26-192 U/L Creatine Kinase MB 1.2 0.5-3.6 ng/ml Creatine Kinase MB Ratio 1.6 0-3.0 Total Protein 8.1 6.4-8.2 gm/dl Albumin 4.2 3.4-5.0 gm/dl Lipase 165 73-393 U/L Urine Color YELLOW Urine Appearance CLEAR CLEAR Urine pH 5.0 4.5-7.5 Urine Specific B[place]the 1.020 1.000-1.030 Urine Protein NEG NEG Urine Glucose (UA) NEG NEG Urine Ketones NEG NEG Urine Occult Blood NEG NEG Urine Nitrite NEG NEG Urine Bilirubin NEG NEG Urine Urobilinogen NEG NEG Urine Leukocyte Esterase TRACE NEG Urine WBC (Auto) 1-5 0-5 /hpf Urine RBC (Auto) 0-4 0-4 /hpf Urine Hyaline Casts (Auto) 1-5 0-5 /lpf Urine Epithelial Cells (Auto) 10-20 0-5 /lpf Urine Bacteria (Auto) NEG NEG Lactic Acid Level 2.4 0.4-2.0 mmol/L Contrast Abdominal/Pelvic CT: Was reviewed by myself and read by the radiologist and shows no evidence of acute intra-abdominal or pelvic injury, no evidence of bowel obstruction. No evidence of free air. Large umbilical/ ventral hernia containing multiple small bowel loops but no evidence of current obstruction, mild bowel wall thickening involving the descending colon consistent with nonspecific colitis. Head CT: Was reviewed by myself and read by the radiologist and showing no acute intracranial findings or skull fractures, no (of intra-or extra-axial masses, acute cortical strokes, midline shift, acute hemorrhage. Minimal white matter hypodensities, all left thalamic lunatic infarct. EKG: Was read by myself and reviewed with ; shows normal sinus rhythm with a ventricular rate of 87 bpm. Normal axis, intervals and complexes. No acute ST changes indicating ischemia, injury or infarction. This was compared to a previous from December 2016 in no acute changes were noted. Patient was hydrated with lactated Ringer's. Patient was reassessed multiple times during her stay in the emergency department. Patient's case was reviewed with ; we agreed on diagnostic approach , treatment, disposition and plan. Patient's case was reviewed with case management and Dr. Breen, hospitalist, for medical observation/admission. There were multiple lengthy conversations with the patient about coming into the hospital for observation patient she expresses a large amount of concerns about her upcoming surgery; she does not want a delayed, she was warned that because of her current situation including her elevated white blood cell count and her episodes of syncope there would be a good chance that it would not be able to occur in 2 days. She then expressed concerns because during the admission process antibiotics were going to be given to decrease her chances of sepsis with her elevated white blood cell count and findings of colitis. After this lengthy conversation she accepted observation stay but refused antibiotics. Patient was educated about today's findings. Clinical Impression: Acute nonspecific colitis. Syncope. Decision-Making: Initially my differential diagnosis I considered bowel obstruction, strangulated hernia, return of ischemic colitis and other causes. Disposition and Plan: Patient to be brought in the hospital by the hospitalist; please see her notes and orders for final disposition and plan.
--- NOTE | 2017-01-16 15:06 | Discharge Instructions ---
Discharge Instructions Date of Service Jan 16, 2017. Admission Reason for Admission: Nonspecific Colitis, Syncope Discharge Discharge Diagnosis / Problem: syncope , nonspecific colitis Discharge Goals Goal(s): Decrease discomfort, Improve function Activity Recommendations Activity Limitations: per Instructions/Follow-up section . Instructions / Follow-Up Instructions / Follow-Up You were admitted after you passed out and were being evaluated for colitis. CT scan of the abdomen revealed he had nonspecific colitis and he was recommended to start antibiotics which you had declined. - Nonspecific colitis: Continue to advance diet as tolerated - Please return to the ER if you develop any worsening abdominal pain, nausea, vomiting, diarrhea or any bloody stools Syncopal episode: -It is likely you passed out secondary to dehydration from the vomiting and diarrhea or from a vasovagal response. - you had cardiac monitoring during your stay which was uneventful- does recommended that she follow-up with your primary care physician and have an outpatient cardiac monitoring to rule out any abnormal heart rhythms. Hypertension: - Continue to use lisinopril 20 mg daily Follow-up with your PCP in the next 2 or 3 days Current Hospital Diet Patient's current hospital diet: Regular Diet Discharge Diet Recommended Diet: Regular Diet Pending Studies Studies pending at discharge: no Laboratory Results 01/16/17 06:02 Red Blood Count 4.11, Mean Corpuscular Volume 86.4, Mean Corpuscular Hemoglobin 28.5, Mean Corpuscular Hemoglobin Concent 33.0, Mean Platelet Volume 8.8, Neutrophils (%) (Auto) 64.9, Lymphocytes (%) (Auto) 25.4, Monocytes (%) (Auto) 7.2, Eosinophils (%) (Auto) 1.8, Basophils (%) (Auto) 0.3, Neutrophils # (Auto) 4.58, Lymphocytes # (Auto) 1.79, Monocytes # (Auto) 0.51, Eosinophils # (Auto) 0.13, Basophils # (Auto) 0.02 01/16/17 06:02 Test 01/15/17 21:49 01/16/17 06:02 Prothrombin Time 10.6 SECONDS (9.0-12.0) Prothromb Time International Ratio 1.0 (0.9-1.1) Activated Partial Thromboplast Time 24.7 SECONDS (21.0-31.0) Partial Thromboplastin Ratio 1.0 White Blood Count 7.06 K/uL (4.8-10.8) Red Blood Count 4.11 M/uL (4.2-5.4) Hemoglobin 11.7 g/dL (12.0-16.0) Hematocrit 35.5 % (37-47) Mean Corpuscular Volume 86.4 fL (80-100) Mean Corpuscular Hemoglobin 28.5 pg (25-34) Mean Corpuscular Hemoglobin Concent 33.0 g/dl (32-36) Platelet Count 266 K/uL (130-400) Mean Platelet Volume 8.8 fL (7.4-10.4) Neutrophils (%) (Auto) 64.9 % Lymphocytes (%) (Auto) 25.4 % Monocytes (%) (Auto) 7.2 % Eosinophils (%) (Auto) 1.8 % Basophils (%) (Auto) 0.3 % Neutrophils # (Auto) 4.58 K/uL (1.4-6.5) Lymphocytes # (Auto) 1.79 K/uL (1.2-3.4) Monocytes # (Auto) 0.51 K/uL (0.11-0.59) Eosinophils # (Auto) 0.13 K/uL (0-0.5) Basophils # (Auto) 0.02 K/uL (0-0.2) RDW Standard Deviation 41.7 fL (36.4-46.3) RDW Coefficient of Variation 13.1 % (11.5-14.5) Immature Granulocyte % (Auto) 0.4 % Immature Granulocyte # (Auto) 0.03 K/uL (0.00-0.02) Anion Gap 6.0 mmol/L (3-11) Est Creatinine Clear Calc Drug Dose 60.1 ml/min Estimated GFR () 100.3 Estimated GFR (Non- 86.6 BUN/Creatinine Ratio 20.5 (10-20) Calcium Level 8.1 mg/dl (8.5-10.1) Medical Emergencies . Who to Call and When: Medical Emergencies: If at any time you feel your situation is an emergency, please call 911 immediately. . Non-Emergent Contact Non-Emergency issues call your: Primary Care Provider . . "Provider Documentation" section prepared by Krissy Skinner. . VTE Core Measure Inpt VTE Proph given/why not?: Enoxaparin (Lovenox)SQ, SCD's Resident Tracking Resident Involvement: Resident Care Provided Care Provided: Adult [facility]
--- NOTE | 2017-01-16 15:08 | Discharge Summary ---
Discharge Summary Date of Service Jan 16, 2017. Discharge Summary Admission Date: Jan 15, 2017 at 20:56 Discharge Date: Jan 16, 2017 Discharge Disposition: Home Principal Diagnosis: syncopal episode Problems/Secondary Diagnoses: Nonspecific colitis, hypertension. Immunizations: Have You Had Influenza Vaccine: Yes History of Tetanus Vaccine?: Unknown History of Pneumococcal: No History of Hepatitis B Vaccine: Unknown Consultations: Gen. surgery Medication Reconciliation Continued Medications: Biotin (Biotin 5000) 5 Mg Cap 5 MG PO QAM Calcium Carbonate-Vitamin D (Calcium/Vitamin D) 1 Cap Cap 1 CAP PO QAM Lactobacillus-Inulin (Culturelle) 1 Cap Cap 1 CAP PO DAILY PRN for Lisinopril (Lisinopril) 20 Mg Tab 20 MG PO QAM Discharge Exam The patient has been doing well with no acute overnight events. Denies complaints of any chest pain, shortness of breath, palpitations, dizziness or lightheadedness. Denies any nausea, vomiting, abdominal pain, diarrhea or bloody stools. She states that she feels well and is disappointed that her elective hernia surgery had been postponed. Review of Systems: Constitutional: No fever, No chills Eyes: No worsening of vision ENT: No hearing loss Respiratory: No cough, No sputum, No shortness of breath Cardiovascular: No chest pain Abdomen: No pain, No nausea, No vomiting, No diarrhea, No GI bleeding Musculoskeletal: No joint pain Genitourinary - Female: No dysuria Genitourinary - Male: No hematuria Neurologic: No memory loss Psychiatric: No depression symptoms Endocrine: No fatigue Physical Exam: General Appearance: WD/WN, no apparent distress Eyes: normal inspection ENT: normal ENT inspection, hearing grossly normal Neck: supple Respiratory/Chest: lungs clear, normal breath sounds, no respiratory distress Cardiovascular: regular rate, rhythm Abdomen / GI: normal bowel sounds, non tender, soft Extremities: no pedal edema, normal range of motion Neurologic/Psychiatric: alert, normal mood/affect, oriented x 3 Skin: normal color Hospital Course 71-year-old female with history of hypertension presented after she had a syncopal episode after an episode of emesis while on the toilet. She had denied any chest pain, palpitations, shortness of breath, dizziness or lightheadedness and stated that she has a history of vasovagal syncope in the past. She does have a history of ischemic colitis. Recent colonoscopy without evidence of diverticulosis. She was back to baseline and denied any new episodes of diarrhea, nausea or vomiting. She had no other episodes of lightheadedness or dizziness. Her EKG was unremarkable and orthostatic vitals were normal. She was scheduled for an elective hernia repair tomorrow which was canceled and will be rescheduled. She is recommended to continue her lisinopril and follow up with her PCP for outpatient cardiac monitoring. She stated that she had workup for her syncopal episodes in the past which were all negative. Total Time Spent: Less than 30 minutes This includes examination of the patient, discharge planning, medication reconciliation, and communication with other providers. Discharge Instructions Please refer to the electronic Patient Visit Report (Discharge Instructions) for additional information. Follow-Up Follow-up with PCP in 2-3 days
[2017-01-16 16:38] VITALS: BP_SYST 106; BP_SYST 113; BP_SYST 134; BP_DIAS 71; BP_DIAS 77; BP_DIAS 81; PULSE 84; TEMP 36.7; O2SAT 93
[2017-01-16 17:25] VITALS: BP 113/81; PULSE 84; TEMP 36.7; O2SAT 93
== END 2017-01-16 18:27 | disposition home or self-care (01) ==
LOC: C.EDB 12:11 → C.2E 20:56 → EDBEDREQ 21:00 → ENRESERV 21:06
PROVIDERS: ADMIT Hospitalist; ATTEND Hospitalist
DX: R55 Syncope and collapse (principal); K52.9 Noninfective gastroenteritis and colitis, unspecified; I10 Essential (primary) hypertension; E87.6 Hypokalemia; Z85.118 Personal history of other malignant neoplasm of bronchus and lung; Z87.891 Personal history of nicotine dependence; Z79.899 Other long term (current) drug therapy

== ENCOUNTER → 2017-02-23 | Outpatient (CLI) | payer OTHER ==
[~2017-02-23] MED LIST changes: +OXYC-57 PO
--- NOTE | 2017-02-23 14:34 | MAMMOGRAPHY REPORT ---
BILATERAL DIGITAL SCREENING MAMMOGRAM WITH CAD: 02/23/2017 CLINICAL HISTORY: Routine screening. Patient has no complaints. TECHNIQUE: Current study was also evaluated with a Computer Aided Detection (CAD) system. Bilateral CC and MLO views were obtained. COMPARISON: Comparison is made to exams dated: 02/23/2016 mammogram, 02/18/2015 mammogram, 4 mammogram, 01/25/2013 mammogram, 01/25/2012 mammogram, and 01/11/2011 mammogram - [facility]. BREAST COMPOSITION: There are scattered areas of fibroglandular density in both breasts. FINDINGS: No suspicious masses, calcifications, or areas of architectural distortion are noted in ei ther breast. There has been no significant interval change compared to prior exams. Scattered bilater al benign-appearing calcifications are not significantly changed. IMPRESSION: ACR BI-RADS CATEGORY 2: BENIGN There is no mammographic evidence of malignancy. A 1 year screening mammogram is recommended. The pa tient will receive written notification of the results. Approximately 10% of breast cancers are not detected with mammography. A negative mammographic report should not delay biopsy if a clinically suggestive mass is present. Christiane Howe M.D. ah/:02/23/2017 11:26:53 Environmental Health And Safety Manager: Livia DORANTES(Clarissa)(M), [facility] letter sent: Normal 1/2 BI-RADS Code: ACR BI-RADS Category 2: Benign
== END | disposition home or self-care (01) ==
LOC: C.MAMM 09:45
PROVIDERS: ATTEND Obstetrics & Gynecology
DX: Z12.31 Encounter for screening mammogram for malignant neoplasm of breast (principal)

== ENCOUNTER → 2017-08-10 | Outpatient (CLI) | payer OTHER ==
[~2017-08-10] MED LIST changes: -OXYC-57 PO
--- NOTE | 2017-08-10 11:51 | DIAGNOSTIC IMAGING REPORT ---
L-SPINE MIN 4 VIEWS ROUTINE CLINICAL HISTORY: Back pain with left leg radiculopathy COMPARISON STUDY: No previous studies for comparison. FINDINGS: There is a minimal spinal curvature. There are no acute fractures. There are multilevel degenerative changes with mild multilevel disc space narrowing. There is minimal retrolisthesis of L1 on L2. IMPRESSION: 1. No acute fractures 2. Multilevel degenerative change Electronically signed by: Jose Mott M.D. 08/10/2017 11:49 AM Dictated Date/Time: 08/10/2017 11:48 AM
--- NOTE | 2017-08-10 11:56 | DIAGNOSTIC IMAGING REPORT ---
SI JOINTS 3 OR MORE VIEWS CLINICAL HISTORY: 72 years-old Female presenting with LUMBAGO WITH SCIATICA, LEFT SIDE. TECHNIQUE: Bilateral oblique and frontal views of the sacroiliac joints were obtained. COMPARISON: CT from 01/15/2017. FINDINGS: The bilateral sacroiliac joints are symmetric and congruent. No evidence of osseous erosion or fusion. No significant osteophytosis. Osteopenia is suspected. Arcuate lines of the sacrum intact. Moderate stool burden evident. A suture line is noted in the right lower quadrant, likely from prior appendectomy. IMPRESSION: Allowing for osteopenia, normal radiographic examination of the sacroiliac joints. Electronically signed by: Devon Bautista M.D. 08/10/2017 11:54 AM Dictated Date/Time: 08/10/2017 11:53 AM
== END | disposition home or self-care (01) ==
LOC: C.RADBC 10:42
PROVIDERS: ATTEND Nurse Practitioner Family
DX: M47.816 Spondylosis without myelopathy or radiculopathy, lumbar region (principal); Z88.8 Allergy status to other drugs, medicaments and biological substances

== ENCOUNTER → 2017-11-16 | Outpatient (CLI) | payer OTHER ==
[~2017-11-16] MED LIST changes: -LACT10CA3 PO; -LSN20 PO
== END | disposition home or self-care (01) ==
LOC: C.RDSM 15:23
PROVIDERS: ATTEND Podiatrist
DX: M79.671 Pain in right foot (principal); M79.672 Pain in left foot